=== PATIENT | male | born 1955 | race Caucasian/White ===

== ENCOUNTER 2019-11-18 02:37 | Emergency (ER) | payer BC, SELFPAY ==
--- NOTE | ~2019-11-18 | CT_ITS ---
EXAMINATION: CT abdomen pelvis wo con DATE: 11/18/2019 03:14 INDICATION: Lower abdominal pain, inguinal pain for 10 years, worse today. TECHNIQUE: Computed tomography (CT) of the abdomen and pelvis was performed without intravenous contr ast. Automated exposure control and iterative reconstruction technique were employed. Exam dose: 112 3.60 mGy-cm total exam DLP. COMPARISON: None. FINDINGS: The lung bases are clear. No pericardial or pleural effusion. 2.5 cm left hepatic lobe cyst. Scattered smaller probable cysts throughout the liver.. The gallbladder is present. No bile duct dilatation. No gallbladder wall thickening. No pancreatic ma ss lesion, calcification or ductal dilatation. Normal splenic size. Normal morphology of the adrenal glands. No renal mass lesion. No urinary tract calculus or hydroureteronephrosis. Normal caliber of the abdominal aorta. No intraperitoneal or retroperitoneal or pelvic mass lesion or adenopathy or ascites. Moderate prominence of the prostate gland. Urinary bladder is unremarkable. There are multiple diverticula of the left colon, particularly the sigmoid colon; no CT evidence of d iverticulitis. No bowel obstruction or intraperitoneal free air. Normal appendix. There is a small fat-containing left inguinal hernia. The tract of an intramedullary precious is noted in the proximal left femur. The hardware is no longer pre sent. Degenerative changes of the lower thoracic and lumbar spine. IMPRESSION: Hepatic cysts Diverticulosis of the colon; no CT evidence of diverticulitis Small fat-containing left inguinal hernia Reviewed, dictated and finalized at [facility]. Reviewed, dictated and finalized at [facility]. 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
[2019-11-18 02:45] VITALS: BP 162/94; PULSE 80; RESP 18; TEMP 36.5; O2SAT 100
--- NOTE | 2019-11-18 02:54 | ED.ABDPAIN ---
HPI - Abdominal Pain General Chief Complaint: Abdominal Pain Stated Complaint: LEFT SIDE PAIN Time Seen by Provider: 11/18/19 02:52 Source: patient and RN notes reviewed Mode of arrival: ambulatory Limitations: no limitations History of Present Illness HPI narrative: Pt is a 64 y/o male who presents to the ED with c/o lt groin pain starting roughly 10 years ago and worsening this morning. He notes that his pain feels similar to a pulled muscle. Pt states he's been doing alot of lifting and pulling and also helped his son with some work that could have aggravated his left groin. Pt states he's not having any pain now since he's not moving or walking. Pt states that his pain worsened into an excruciating pain after he went to use the restroom this morning. He notes that his pain is aggravated with certain movements. Pt states that he took 2 Tylenol for his pain this morning. He denies any nausea, vomiting, fever, dysuria, or hematuria. MD elicited complaint: abdominal pain Onset (ago): year(s) (10) Location: groin (lt groin) Radiation: none Exacerbating factors: movement Associated symptoms: denies other symptoms Treatments prior to arrival: other (Tylenol) Related Data Allergies Allergy/AdvReac Type Severity Reaction Status Date / Time Penicillins Allergy Hives Verified 11/18/19 02:40 Review of Systems Review of Systems: All systems reviewed & are unremarkable except as noted in HPI and below Constitutional: Constitutional: Denies fever(s) Gastrointestinal: Gastrointestinal: Reports abdominal pain (lt groin pain), Denies nausea and Denies vomiting Genitourinary: Genitourinary: Denies hematuria and Denies dysuria [facility] Past Medical History Medical History Anxiety Arthritis Hernia HTN (hypertension) Surgical History Surgical History S/P ORIF (open reduction internal fixation) fracture pinning in lt leg Social History Social History Smoking status: Never smoker Gender identity (if verbalized by the patient): Male Exam Const: General: cooperative, healthy appearing, comfortable, no acute distress, well developed, alert and awake; No confusion Orientation/consciousness: oriented to person, oriented to place, oriented to time, patient oriented x3 and No confusion Limitations: no limitations HENMT: Head: normal to inspection, normocephalic and atraumatic Neck: Neck: normal visual inspection Resp: Effort & Inspection: normal respiratory effort, able to speak in complete sentences, no respiratory distress and not tachypneic Auscultation: clear to auscultation bilaterally, no crackles, no rales, no rhonchi and no wheezes Cardio: Rate: regular rate Rhythm: regular rhythm GI: Inspection: normal to inspection GI Palp: No Tenderness to palpation present (GI) and No Hernia present (no inguinal hernia palpated) Auscultation: normal bowel sounds : General: Yes no CVA tenderness Skin: General skin exam: normal color, no rashes or lesions noted, elasticity normal and turgor normal Neuro: General: oriented to person, oriented to place, oriented to time, patient oriented x3, tone normal, moves all extremities, Normal light touch and pain sensation, no meningeal signs, no focal motor deficits, CN's II-XI intact bilaterally and No confusion Cranial nerves: Yes Equal, round and reactive pupils present Speech: No Abnormal speech present Sensory Exam: No Sensory deficit (Neuro) Extrem: General: normal to inspection, full ROM and capillary refill normal Psych: Appearance: grossly normal and well kempt Mental Status: mental status grossly normal Speech and movement: Normal speech and movement present Affect: normal affect Attitude: cooperative Thought process: Normal thought process present Thought content: Yes Normal thought content present Insight: Good insight present (Psy
--- NOTE | 2019-11-18 03:10 | PC.NURSE ---
patient to radiology.
[2019-11-18 03:24] LABS: Alanine Aminotransferase 28 U/L (4-50); Albumin Level 4.6 g/dL (3.5-5.1); Alkaline Phosphatase 109 U/L (38-126); Aspartate Amino Transferase 30 U/L (17-59); Bilirubin,Total 0.3 mg/dL (0.2-1.3); Blood Urea Nitrogen 26 mg/dL (9-20); Calcium 9.5 mg/dL (8.4-10.2); Carbon Dioxide 24 mmol/L (22-30); Chloride 107 mmol/L (98-107); Estimated CRCL calculation 70 ml/min; Estimated Glomerular Filt Rate > 60; Glucose 91 mg/dL (75-110); Lipase 51 U/L (23-300); Potassium 4.2 mmol/L (3.4-5.0); Sodium 142 mmol/L (137-145)
[2019-11-18 03:26] LABS: Basophils Absolute Auto 0.1 K/mm3 (0.0-0.1); Eosinophils Absolute Auto 0.1 K/mm3 (0-0.3); Hematocrit 44.1 % (42.0-52.0); Hemoglobin 14.5 g/dL (14.0-18.0); Immature Granulocyte Absolute 0.02 K/mm3 (0.00-0.031); Immature Granulocyte Percent A 0.3 % (0-0.5); Lymphocytes Absolute Auto 1.52 K/mm3 (0.9-3.2); Lymphocytes Percent Auto 21.5 % (18.3-44.2); Mean Corpuscular HGB Conc 32.9 g/dl (32-36); Mean Corpuscular Hemoglobin 29.7 pg (26-34); Mean Corpuscular Volume 90.4 fl (80-100); Mean Platelet Volume 9.4 fl (7.4-10.4); Monocytes Absolute Auto 0.8 K/mm3 (0.1-0.6); Monocytes Percent Auto 10.8 % (2.6-8.5); Neutrophils Absolute Auto 4.6 K/mm3 (1.3-6.7); Neutrophils Percent Auto 64.4 % (45.5-73.1); Platelet Count Result 209 k/mm3 (150-375); Red Blood Count 4.88 M/mm3 (4.6-6.20); Red Cell Distribution Width 12.7 % (11.5-14.5); White Blood Count 7.1 K/mm3 (4.5-10.0)
[2019-11-18] MEDS: KETOROLAC 30 MG/ML VIAL (*BKC) IV PUSH (04:14)
[2019-11-18 04:29] LABS: Add Urine Microscopic? NO; Appearance Urine Clear (Clear); Bilirubin Urine Negative (Negative); Blood Urine Negative (Negative); Color Urine Straw (Yellow); Glucose Urine UA Negative (Negative); Ketones Urine Negative (Negative); Leukocyte Esterase Ur Negative LEU/UL (Negative); Nitrate Urine Negative (Negative); Protein Urine Negative (Negative); Specific Grav Ur 1.019 (1.001-1.035); Urobilinogen Urine Negative mg/dL (<2.0)
[2019-11-18 04:44] VITALS: TEMP 36.5
[2019-11-18 04:46] VITALS: TEMP 36.5
[2019-11-18 04:50] VITALS: BP 145/89; PULSE 78; RESP 18; O2SAT 97
== END 2019-11-18 04:50 | disposition home or self-care (01) ==
PROVIDERS: Emergency Provider Emergency Medicine; PCP Family Medicine
DX: R10.32 Left lower quadrant pain (principal); M19.90 Unspecified osteoarthritis, unspecified site; I10 Essential (primary) hypertension; K76.89 Other specified diseases of liver; K57.90 Diverticulosis of intestine, part unspecified, without perforation or abscess without bleeding; K44.9 Diaphragmatic hernia without obstruction or gangrene
CPT/HCPCS: 36415; 74176; 80053; 81003; 83690; 85025; 96374; 96375; 99284; A9270; J1885; J3360

== ENCOUNTER 2020-01-20 00:12 | Day surgery (SDC) | payer BC, SELFPAY ==
[2020-01-18 13:04] VITALS: BMI 32.5
[2020-01-20] VITALS (9 sets, daily range): BP systolic 126–153; BP diastolic 77–98; PULSE 67–89; RESP 12–20; TEMP 36.1–36.4; O2SAT 98–100
--- NOTE | 2020-01-20 07:38 | ECG_ITS ---
Measurements Intervals [place] Rate: 77 P: 48 DC: 178 QRS: 19 QRSD: 110 T: 23 QT: 384 QTc: 436 Interpretive Statements SINUS RHYTHM NORMAL ECG Electronically Signed On 01-20-2020 7:57:32 CDT by Ivan Resendiz D.O.
[2020-01-20] MEDS: LACTATED RINGERS 1,000 ML 30 ML IV CONT ×2 (08:00→10:51)
--- NOTE | 2020-01-20 08:34 | WPDANESEPPF ---
Anes - Initial Pre Proc Eval Procedure: Operation Date: 01/20/20 09:30 Proposed Procedures p Laparoscopic Left Inguinal Hernia Repair With Mesh, Davinci Assisted - Manny Mccallum DO Date/Time: 01/20/20 08:34 Surgeon: Manny Mccallum DO Pre Op Diagnosis: Left Inguinal Hernia Patient Data Age: 64 Gender: M Height: 5 ft 9 in Weight: 99.79 kg Allergies Allergy/AdvReac Type Severity Reaction Status Date / Time Penicillins Allergy Hives Verified 01/20/20 08:11 Home Medications Medication Instructions Recorded Confirmed Type atorvastatin 40 mg tablet 40 mg PO DAILY 11/24/19 01/20/20 History losartan 100 mg tablet 100 mg PO DAILY 11/24/19 01/20/20 History amlodipine 5 mg PO DAILY 01/18/20 01/20/20 History Patient hx anesthesia problems: none Family hx anesthesia problems: none [facility], [facility] Social History Social History Smoking status: Never smoker Alcohol intake: current Gender identity (if verbalized by the patient): Male Anes - Eval Final PreProcedure Day of Procedure 01/20/20 08:34 Patient weight: overweight Heart: regular rate and rhythm Lungs: clear to auscultation Airway: Mallampati scale class III Neurological: alert and oriented Last oral intake: >/= 8 hours ASA classification: III Emergent: no Anesthetic plan: proceed Anesthesia type and monitoring: general ETT and standard monitoring Informed Consent: The patient's anesthetic plan and its attendant risks and benefits were discussed with the patient/family/POA. Questions were solicited and answers provided to the satisfaction of the patient/family/POA.
--- NOTE | 2020-01-20 08:53 | PM.IMHP ---
H&P: HPI History of Present Illness Chief complaint: Left Inguinal Hernia Narrative: Raul Lopez is a 64 year old male who presents for left inguinal hernia repair. He was noted to have a reducible left inguianl hernia that was minimally symptomatic. Over the past several weeks, he has had worsening pain and is requesting repair more urgently. Review of Systems Review of Systems: All systems reviewed & are unremarkable except as noted in HPI and below PMFSH Past Medical History Medical History Anxiety Arthritis HTN (hypertension) Hyperlipidemia Surgical History Surgical History History of hernia surgery right side with mesh 1999 S/P ORIF (open reduction internal fixation) fracture pinning in lt leg 1973 or 1974 Family History Family History Father Leukemia Mother Lung cancer Social History Social History Smoking status: Never smoker Alcohol intake: current Gender identity (if verbalized by the patient): Male Meds Home Medications and Allergies Home Medications Medication Instructions Recorded Confirmed Type atorvastatin 40 mg tablet 40 mg PO DAILY 11/24/19 01/20/20 History losartan 100 mg tablet 100 mg PO DAILY 11/24/19 01/20/20 History amlodipine 5 mg PO DAILY 01/18/20 01/20/20 History Allergies Allergy/AdvReac Type Severity Reaction Status Date / Time Penicillins Allergy Hives Verified 01/20/20 08:11 Exam : Scrotum: inguinal hernia on the left Assessment and Plan Assessment and plan (1) Left inguinal hernia: Code(s): K40.90 - Unilateral inguinal hernia, without obstruction or gangrene, not specified as recurrent Status: Acute Assessment and Plan: I have recommended laparoscopic left inguinal hernia repair with mesh, da Helen assisted. I have discussed the procedure, risks, benefits, and alternatives with the patient. All questions answered. No changes since last seen in office.
[2020-01-20] MEDS: ceFAZolin 2 GM/D5W 50 ML 2 GM/50 ML BAG IVPB (09:31)
[2020-01-20] MEDS: IBUPROFEN IV 800 MG/200 ML 800 MG/200 ML BAG 400 MG IVPB (09:31)
[2020-01-20] MEDS: BUPIVACAINE/EPINEPHRINE 0.5% 30 ML VIAL INFILTRATE (10:07)
--- NOTE | 2020-01-20 10:41 | PM.PROC ---
Procedure Note - Detailed Date of procedure: 01/20/20 Pre-op diagnosis: Left Inguinal Hernia Post-op diagnosis: same (Small indirect left inguinal hernia) Procedure performed: Laparoscopic left inguinal hernia repair with Progrip mesh, da Helen assisted Description of procedure: Procedure as well as risks, benefits, and alternatives were discussed with the patient. Written consent was obtained and placed in chart prior to procedure. Patient was brought back to surgical suite. He was placed supine on operating table. Time-out was done to confirm patient and procedure. He was then intubated by Anesthesia Department. His abdomen was prepped and draped in sterile fashion using chlorhexidine prep. 0.5% bupivacaine with epinephrine was infiltrated at each location for incision. An 8 mm incision was made in the left lateral abdomen, and a 5 mm Optiview trocar was advanced through the abdominal layers under direct visualization. Once inside the abdominal cavity, carbon dioxide insufflation was used to create a pneumoperitoneum. A camera was inserted and the abdominal cavity was inspected. The patient was placed in slight Trendelenburg position. An 8 millimeter incision was made on the right lateral abdomen and an 8 millimeter trocar was inserted under direct visualization. Another 8 millimeter incision was made just superior to the umbilicus and an 8 millimeter trocar was inserted under direct visualization. The 5 mm port was then removed and this was replaced with another 8 mm robotic port. The robotic arms were brought up to the patient's bedside and secured to the ports. The camera and instruments were inserted. I then moved over to the robotic console and took control of the camera and instruments. After careful inspection of the abdominal cavity, I began scoring the peritoneum along the left lower quadrant using scissors with electrocautery. The preperitoneal plane was entered and this was carefully dissected caudally along the inferior epigastric vessels. Careful dissection with scissors with electrocautery and blunt dissection was used to continue this dissection. I dissected far enough laterally to allow for mesh placement, and also dissected medially to identify the pubic arch and Marky's ligament. The hernia sac was identified and carefully dissected posteriorly. The cord contents were also identified and the peritoneum was carefully dissected far enough posteriorly to allow for mesh placement. Once an adequate pocket was created, I then placed the mesh within the preperitoneal pocket and carefully unfolded it. The mesh was centered on the hernia defect with adequate overlap circumferentially. The inferior edge of the mesh was inspected to ensure that it was far enough away from the peritoneal edge. The mesh appeared in proper position overlying the entire myopectineal orifice. The peritoneum was then closed over the mesh using a 3-0 V-lock running absorbable suture. The robotic instruments were removed. The robotic arms were disengaged from the ports and moved away from the bedside. The patient was flattened out in bed, the ports were removed under direct visualization, and the pneumoperitoneum was released. The skin of the incisions was approximated using 4-0 Monocryl subcuticular suture, and Exofin glue was applied on top. The patient was awakened from anesthesia, extubated, and transferred to recovery. Implants: Progrip Mesh 10cm x 15cm Anesthesia: GETA and local (0.5% bupivicaine with epi) Surgeon: Manny Mccallum DO Estimated blood loss (mL): 5 Drains: No Packing: No Pathology: none sent Complications: No immediate complications Condition: stable Disposition: same day Findings: This is a 64-year-old man who presented with a symptomatic left inguinal hernia. He was complaining of some discomfort in his left groin region, and a CT back in October showed evidence of a small fat containing left inguinal hernia. He was minimally
== END 2020-01-20 13:02 | disposition home or self-care (01) ==
PROVIDERS: PCP Family Medicine; Visit Provider Surgery
PROC: 8E0Y4CZ Robotic Assisted Procedure of Lower Extremity, Percutaneous Endoscopic Approach (ICD-10-PCS; CPT 49650; principal; 2020-01-20 09:30)
DX: K40.90 Unilateral inguinal hernia, without obstruction or gangrene, not specified as recurrent (principal); I10 Essential (primary) hypertension; E78.5 Hyperlipidemia, unspecified; M19.90 Unspecified osteoarthritis, unspecified site; F41.9 Anxiety disorder, unspecified
CPT/HCPCS: 49650; S2900; 36415; 86850; 86900; 86901; 93005; A9270; C1781; J0690; J1100; J1741; J2250; J2405; J2704; J2710; J3010; J7120

== ENCOUNTER 2020-05-29 19:00 | Emergency (ER) | payer MEDICARE, BC, SELFPAY ==
--- NOTE | ~2020-05-29 | XR_ITS ---
EXAMINATION: XR chest 1V portable INDICATION: Fever, history of lymphoma TECHNIQUE: Portable AP chest at 2112 hours COMPARISON: None available FINDINGS: The lungs are free of acute opacities. There is no pleural effusion or pneumothorax. A righ t internal jugular Port-A-Cath ends with its tip in the distal superior vena cava. The cardiomediasti nal silhouette is normal. IMPRESSION: 1. No acute cardiopulmonary abnormality. Reviewed, dictated and finalized at [facility].
[2020-05-29 19:08] VITALS: BP 128/91; PULSE 132; RESP 38; TEMP 37.8; O2SAT 100
[2020-05-29 19:15] VITALS: RESP 25
[2020-05-29 20:07] VITALS: BP 114/91; PULSE 137; RESP 30; O2SAT 100
[2020-05-29 20:13] LABS: Hematocrit 23.4 % (42.0-52.0); Immature Platelet Fraction Pct 3.5 % (0.9-11.2); Lymphocytes Absolute Auto 0.12 K/mm3 (0.9-3.2); Lymphocytes Percent Auto 70.6 % (18.3-44.2); Mean Corpuscular HGB Conc 34.2 g/dl (32-36); Mean Corpuscular Hemoglobin 29.4 pg (26-34); Mean Platelet Volume 11.9 fl (7.4-10.4); Monocytes Percent Auto 17.6 % (2.6-8.5); Neutrophils Percent Auto 11.8 % (45.5-73.1); Nucleated Red Blood Cells Perc 17.6 % (0.0-0.2); Platelet Count Result 57 k/mm3 (150-375); Red Blood Count 2.72 M/mm3 (4.6-6.20); Red Cell Distribution Width 14.8 % (11.5-14.5)
[2020-05-29 20:20] LABS: White Blood Count 0.2 K/mm3 (4.5-10.0)
[2020-05-29 20:21] LABS: Hypochromasia 1+ (NORMAL); Platelet Estimate Decreased (Adequate)
[2020-05-29 20:22] LABS: Lactic Acid Reflex 2.9 mmol/L (0.7-2.1)
[2020-05-29 20:23] LABS: Alanine Aminotransferase 21 U/L (4-50); Albumin Level 3.2 g/dL (3.5-5.1); Alkaline Phosphatase 69 U/L (38-126); Anion Gap 9 mmol/L (8-16); Aspartate Amino Transferase 16 U/L (17-59); Bilirubin,Total 0.5 mg/dL (0.2-1.3); Blood Urea Nitrogen 19 mg/dL (9-20); Calcium 8.6 mg/dL (8.4-10.2); Carbon Dioxide 22 mmol/L (22-30); Chloride 100 mmol/L (98-107); Estimated CRCL calculation 68 ml/min; Estimated Glomerular Filt Rate > 60; Glucose 125 mg/dL (75-110); Potassium 4.1 mmol/L (3.4-5.0); Sodium 131 mmol/L (137-145)
[2020-05-29] MEDS: SODIUM CHLORIDE 0.9% IV 1,000 ML 150 ML IV CONT (20:25)
--- NOTE | 2020-05-29 20:57 | PC.NURSE ---
2054 Patient fluids increased to 999ml/hr at this time per Dr. Modi verbal requests.
[2020-05-29 21:00] VITALS: BP 120/88; PULSE 123; RESP 24; O2SAT 100
--- NOTE | 2020-05-29 21:29 | ED.FEVER ---
HPI - Fever General Chief Complaint: Fever <Krish Rainey MD - Last Filed: 05/29/20 21:43> Stated Complaint: LOW WBC CHEMO PT <Krish Rainey MD - Last Filed: 05/29/20 21:43> Time Seen by Provider: 05/29/20 19:07 <Krish Rainey MD - Last Filed: 05/29/20 21:43> Source: patient and family <Krish Rainey MD - Last Filed: 05/29/20 21:43> Mode of arrival: ambulatory <Krish Rainey MD - Last Filed: 05/29/20 21:43> Limitations: no limitations <Krish Rainey MD - Last Filed: 05/29/20 21:43> History of Present Illness HPI Narrative: 65-year-old with a history of hypertension, B-cell lymphoma presently going through chemotherapy here with complaints of having low-grade fever since this afternoon. Patient states that on the fifth day after chemo his white cell count drops to bare minimum and usually on the 6-day he starts feeling better however this time he had a fever of 100. Patient states that he called [facility] who recommended him to go to the ER however patient chose to come to our ER as we do not have a time. He denies any nausea or vomiting. No history of cough or shortness of breath. He denies any abdominal pain. No history of any urinary symptoms. <Krish Rainey MD - Last Filed: 05/29/20 21:43> MD elicited complaint: fever <Krish Rainey MD - Last Filed: 05/29/20 21:43> Pertinent past history: immunosuppression <Krish Rainey MD - Last Filed: 05/29/20 21:43> Onset (ago): hour(s) (6) <MD Damari Trinh Last Filed: 05/29/20 21:43> Measured temperature: 212 F <Krish Rainey MD - Last Filed: 05/29/20 21:43> Context: on chemotherapy <MD Damari Trinh Last Filed: 05/29/20 21:43> Exacerbating factors: nothing <MD Damari Trinh Last Filed: 05/29/20 21:43> Relieving factors: nothing <Krish Rainey MD - Last Filed: 05/29/20 21:43> Associated symptoms: denies other symptoms <Krish Rainey MD - Last Filed: 05/29/20 21:43> Treatments prior to arrival fever: none <Krish Rainey MD - Last Filed: 05/29/20 21:43> Related Data Home Medications: Home Medications Medication Instructions Recorded Confirmed atorvastatin 40 mg tablet 40 mg PO DAILY 11/24/19 02/11/20 losartan 100 mg tablet 100 mg PO DAILY 11/24/19 02/11/20 amlodipine 5 mg PO DAILY 01/18/20 02/11/20 <Krish Rainey MD - Last Filed: 05/29/20 21:43> Allergies/Adverse Reactions: Allergies Allergy/AdvReac Type Severity Reaction Status Date / Time Penicillins Allergy Hives Verified 02/08/20 09:13 <Krish Rainey MD - Last Filed: 05/29/20 21:43> Review of Systems Review of Systems: All systems reviewed & are unremarkable except as noted in HPI and below <Krish Rainey MD - Last Filed: 05/29/20 21:43> Constitutional: Constitutional: Reports as per HPI <Krish Rainey MD - Last Filed: 05/29/20 21:43> Eyes: Eyes: Reports as per HPI <Krish Rainey MD - Last Filed: 05/29/20 21:43> ENT: Reports as per HPI <Krish Rainey MD - Last Filed: 05/29/20 21:43> Cardiovascular: Cardiovascular: Reports no additional cardiovascular complaints <Krish Rainey MD - Last Filed: 05/29/20 21:43> Respiratory: Respiratory: Reports no additional respiratory complaints <Krish Rainey MD - Last Filed: 05/29/20 21:43> Gastrointestinal: Gastrointestinal: Reports no additional gastrointestinal complaints <Krish Rainey MD - Last Filed: 05/29/20 21:43> Musculoskeletal: Musculoskeletal: Reports no additional musculoskeletal complaints <Krish Rainey MD - Last Filed: 05/29/20 21:43> Neurologic: Reports system reviewed and no additional complaints, except as documented <Krish Rainey MD - Last Filed: 05/29/20 21:43> [facility] Past Medical History Medical History: Medical History Anxiety Arthritis HTN (hypertension) Hyperlipidemia <Krihs Rainey MD - [place]
[2020-05-29 21:56] LABS: Add Urine Microscopic? NO; Appearance Urine Clear (Clear); Bilirubin Urine Negative (Negative); Blood Urine Negative (Negative); Color Urine Yellow (Yellow); Glucose Urine UA Negative (Negative); Ketones Urine Negative (Negative); Leukocyte Esterase Ur Negative LEU/UL (Negative); Nitrate Urine Negative (Negative); Protein Urine Negative (Negative); Specific Grav Ur 1.013 (1.001-1.035); Urobilinogen Urine Negative mg/dL (<2.0)
[2020-05-29 22:13] VITALS: BP 119/85; PULSE 123; RESP 25; O2SAT 100
--- NOTE | 2020-05-29 22:45 | PC.NURSE ---
Report to Miesha at the [facility], Room number 3444 [facility] given
--- NOTE | 2020-05-29 22:55 | PC.NURSE ---
Report to Leonie GILBERT at [facility]
[2020-05-29 23:07] VITALS: BP 118/88; PULSE 124; RESP 25; TEMP 37.3; O2SAT 100
[2020-05-29 23:09] LABS: Reflex Lactic Acid Yes or No Add Lactic
== END 2020-05-29 23:15 | disposition short-term general hospital (02) ==
PROVIDERS: Emergency Provider Family Medicine; PCP Family Medicine
DX: D70.9 Neutropenia, unspecified (principal); R50.81 Fever presenting with conditions classified elsewhere; I10 Essential (primary) hypertension; C85.10 Unspecified B-cell lymphoma, unspecified site; Z79.899 Other long term (current) drug therapy; E78.5 Hyperlipidemia, unspecified; M19.90 Unspecified osteoarthritis, unspecified site
CPT/HCPCS: 36415; 71045; 80053; 81003; 83605; 85025; 85055; 87040; 96361; 96365; 96367; 99285; J0692; J3370; J7030

== ENCOUNTER 2020-08-05 14:46 | Outpatient (CLI) | payer MEDICARE, BC, SELFPAY ==
--- NOTE | ~2020-08-05 | US_ITS ---
EXAMINATION: US venous doppler LE RT EXAM DATE: 08/05/2020 15:17 INDICATION: Right leg edema. TECHNIQUE: Multiple grayscale, color flow and Doppler images of the lower extremity deep venous syste ms bilaterally were obtained and reviewed. There is no prior study for comparison. FINDINGS: Right side: The right common femoral, femoral and profunda veins demonstrate normal color flow, respi ratory variation, augmentation and compressibility. Compressibility, color flow confirmed within the right popliteal, posterior tibial, peroneal, and greater saphenous veins. Left side: The left common femoral, femoral and profunda veins demonstrate normal color flow, respira tory variation, augmentation and compressibility. Compressibility, color flow confirmed within the l eft popliteal, posterior tibial, peroneal, and greater saphenous veins. IMPRESSION: 1. No lower extremity deep venous thrombosis bilaterally. Reviewed, dictated and finalized at [facility]. 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
== END 2020-08-05 14:47 | disposition home or self-care (01) ==
LOC: ANHIMG 14:53
PROVIDERS: PCP Family Medicine; Visit Provider Family Medicine
DX: R60.0 Localized edema (principal)
CPT/HCPCS: 93971

== ENCOUNTER 2020-08-30 10:12 | Outpatient (CLI) | payer MEDICARE, BC, SELFPAY ==
--- NOTE | ~2020-08-30 | XR_ITS ---
XR chest 2V 08/30/2020 10:26 Indication: Cough and shortness of breath. History of lymphoma. Procedure: PA and lateral views of the chest Comparison: 05/29/2020 Findings: Patchy bilateral airspace disease, compatible with pneumonia. No pleural effusion. Portacat heter tip in the SVC. No pneumothorax. Impression: 1: Patchy bilateral airspace disease, compatible with pneumonia. Reviewed, dictated and finalized at [facility]. 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
== END 2020-08-30 10:13 | disposition home or self-care (01) ==
PROVIDERS: PCP Family Medicine; Visit Provider Family Medicine
DX: R05 Cough (principal); R91.8 Other nonspecific abnormal finding of lung field
CPT/HCPCS: 71046

== ENCOUNTER 2020-09-02 11:33 | Inpatient (IN) | payer MEDICARE, BC, SELFPAY ==
[2020-09-02] VITALS (28 sets, daily range): BP systolic 106–151; BP diastolic 74–96; PULSE 84–120; RESP 16–32; TEMP 36.6; O2SAT 91–98; BMI 29.7
--- NOTE | ~2020-09-02 | XR_ITS ---
EXAMINATION: XR chest 1V portable DATE: 09/07/2020 06:13 INDICATION: COVID presenting with cough and shortness of breath TECHNIQUE: frontal view of the chest was obtained. COMPARISON: Chest radiograph and CT dated 09/02/2020 FINDINGS: Again seen are patchy bilateral airspace opacities throughout both lungs which appear unchanged in ex tent but with some increase in the density of the opacities in the left upper lung zone. No pleural e ffusion or pneumothorax. The cardiomediastinal silhouette is normal. IMPRESSION: 1. Diffuse scattered bilateral patchy airspace opacities consistent with pneumonia with some progress ion in the left upper lung zone. Reviewed, dictated and finalized at location A. ARCH AND DEVELOPMENT MANAGER IMPRESSION: 1. Diffuse scattered bilateral patchy airspace opacities consistent with pneumo kimi with some progression in the left upper lung zone.
--- NOTE | ~2020-09-02 | US_ITS ---
EXAMINATION: US venous doppler [facility] DATE: 09/10/2020 13:28 INDICATION: Shortness of breath TECHNIQUE: Grayscale ultrasound images without and with compression and Doppler ultrasound images of the bilateral lower extremity veins were obtained. COMPARISON: 08/05/2020 FINDINGS: The visualized portions of right common femoral vein, profunda (deep) femoral vein, femoral vein, pop liteal vein, posterior tibial veins, peroneal veins, gastrocnemius vein and greater saphenous vein ou tflow remain patent. The visualized portions of left common femoral vein, profunda femoral vein, femoral vein, popliteal v ein, posterior tibial veins, peroneal veins, gastrocnemius vein and greater saphenous vein outflow ar e patent. IMPRESSION: 1. No deep venous thrombosis in either lower limb. Reviewed, dictated and finalized at location A. SPLITTER
--- NOTE | ~2020-09-02 | XR_ITS ---
XR chest 1V portable 09/02/2020 12:57 Indication: Shortness of breath Procedure: AP portable chest Comparison: 08/30/2020 Findings: Progression of patchy bilateral airspace disease, compatible with pneumonia. Port catheter tip in the SVC. No pneumothorax or pleural effusion. No acute osseous abnormality. Impression: 1: Progression of patchy bilateral airspace disease, compatible with pneumonia. Reviewed, dictated and finalized at location B. EN EQUIPMENT AIDE Impression: 1: Progression of patchy bilateral airspace disease, compatible with pneumonia.
--- NOTE | ~2020-09-02 | CT_ITS ---
EXAMINATION:CT chest wo con DATE: 09/02/2020 12:59 INDICATION: Shortness of breath. Pneumonia. TECHNIQUE: Computed tomography (CT) of the chest was performed without intravenous contrast. Automate d exposure control and iterative reconstruction technique were employed. The dose-length product (DLP ) was 312.07 mGy-cm. COMPARISON: CT abdomen and pelvis 11/18/2019, chest single view 09/02/2020 FINDINGS: Motion artifact is noted. There are patchy groundglass opacities in all lobes, worst in the upper lobes. There are small pleural effusions. The heart size is normal. There is a right internal jugular port with tip at superior cavoatrial junction. There are cysts in the liver measuring up to 2 .8 cm. There is severe cervical and thoracic spondylosis. IMPRESSION: 1. Diffuse lung disease, likely atypical pneumonia such as COVID-19 pneumonia. 2. Small pleural effusions. Reviewed, dictated and finalized at location A. [employer]
--- NOTE | 2020-09-02 11:49 | ECG_ITS ---
Measurements Intervals [place] Rate: 122 P: 49 NE: 167 QRS: 56 QRSD: 98 T: 27 QT: 315 QTc: 450 Interpretive Statements SINUS TACHYCARDIA BORDERLINE T WAVE ABNORMALITY- INFERIOR LEADS ABNORMAL ECG Electronically Signed On 09-02-2020 12:04:54 GLASS CUT OFF TENDER by Ivna Resendiz D.O.
--- NOTE | 2020-09-02 11:59 | PC.NURSE ---
pt requesting labs to be drawn from port a cath
--- NOTE | 2020-09-02 12:33 | ED.GENADULT ---
HPI - General Adult General Chief complaint: Weakness Stated complaint: weakness/decreased energy/cough Time Seen by Provider: 09/02/20 12:26 Source: patient Mode of arrival: ambulatory Limitations: no limitations History of Present Illness HPI narrative: Patient is a 65-year-old male complaining of pneumonia , and generalized weakness that started 3 weeks ago but worse the past week. Patient states he is currently being treated with Zithromax but states he is not better went to his PCP and was told to go to the ER. Patient denies any chest pain, shortness of breath, abdominal pain, nausea, vomiting, diarrhea, fever or chills. Admits to coughing constantly, productive clear sputum. Related Data Home Medications Medication Instructions Recorded Confirmed atorvastatin 40 mg tablet 40 mg PO DAILY 11/24/19 02/11/20 losartan 100 mg tablet 100 mg PO DAILY 11/24/19 02/11/20 amlodipine 5 mg PO DAILY 01/18/20 02/11/20 Allergies Allergy/AdvReac Type Severity Reaction Status Date / Time Penicillins Allergy Hives Verified 02/08/20 09:13 Review of Systems Review of Systems: All systems reviewed & are unremarkable except as noted in HPI and below Constitutional: Constitutional: Denies body ache(s), Denies chills, Denies excessive sweating, Denies fatigue, Denies fever(s), Denies headache(s), Denies lethargy and Denies weight loss Eyes: Eyes: Denies blurry vision, Denies change in vision and Denies loss of vision ENT: Denies dizziness, Denies ear discharge, Denies headache(s), Denies lip swelling, Denies epistaxis, Denies nasal congestion, Denies neck pain, Denies throat swelling and Denies tongue swelling Cardiovascular: Cardiovascular: Denies chest pain, Denies chest pain at rest, Denies chest pain with activity, Denies diaphoresis, Denies rapid heart rate, Denies edema, Denies irregular heart rhythm, Denies lightheadedness, Denies palpitations, Denies dyspnea and Denies dyspnea on exertion Respiratory: Respiratory: Denies chest congestion, Denies cough, Denies hemoptysis, Denies dyspnea and Denies dyspnea on exertion Gastrointestinal: Gastrointestinal: Denies abdominal pain, Denies melena, Denies hematochezia, Denies diarrhea, Denies nausea, Denies vomiting and Denies hematemesis Musculoskeletal: Musculoskeletal: Denies abnormal gait, Denies deformity, Denies joint swelling, Denies limited range of motion, Denies neck pain and Denies numbness Neurologic: Denies Abnormal speech present, Denies abnormal gait, Denies confusion, Denies dizziness, Denies headache(s), Denies focal weakness, Denies loss of vision, Denies numbness, Denies Other visual disturbances and Denies Sensory deficit (Neuro) Psychiatric: Psychiatric: Denies confusion, Denies depression, Denies auditory hallucinations, Denies homicidal ideation and Denies suicidal ideation Endocrine: Endocrine: Denies cold intolerance, Denies excessive sweating, Denies fatigue, Denies heat intolerance and Denies palpitations Hematologic/Lymphatic: Hematologic/Lymphatic: Denies easy bleeding and Denies easy bruising Allergic/Immunologic: Allergic/Immunologic: Denies lip swelling, Denies throat swelling and Denies tongue swelling PMFSH Past Medical History Medical History (Updated 09/02/20 @ 15:23 by Gomez Morgan MD) Anxiety Arthritis HTN (hypertension) Hyperlipidemia Surgical History Surgical History History of hernia surgery right side with mesh 1999 S/P ORIF (open reduction internal fixation) fracture pinning in lt leg 1973 or 1974 Family History Family History Father Leukemia Mother Lung cancer Social History Social History Smoking status: Never smoker Alcohol intake: current Gender identity (if verbalized by the patient): Male Exam Const: General: cooperative, healthy appearing, comforta
[2020-09-02 12:59] LABS: Basophils Percent Auto 0.9 % (0.2-1.2); Eosinophils Percent Auto 0.9 % (0-4.4); Hematocrit 32.2 % (42.0-52.0); Hemoglobin 10.3 g/dL (14.0-18.0); Immature Granulocyte Absolute 0.09 K/mm3 (0.00-0.031); Immature Granulocyte Percent A 7.8 % (0-0.5); Immature Platelet Fraction Pct 5.8 % (0.9-11.2); Lymphocytes Absolute Auto 0.19 K/mm3 (0.9-3.2); Lymphocytes Percent Auto 16.5 % (18.3-44.2); Mean Corpuscular Hemoglobin 32.1 pg (26-34); Mean Corpuscular Volume 100.3 fl (80-100); Mean Platelet Volume 11.1 fl (7.4-10.4); Monocytes Absolute Auto 0.2 K/mm3 (0.1-0.6); Neutrophils Absolute Auto 0.7 K/mm3 (1.3-6.7); Neutrophils Percent Auto 60.9 % (45.5-73.1); Platelet Count Result 35 k/mm3 (150-375); Red Blood Count 3.21 M/mm3 (4.6-6.20); Red Cell Distribution Width 15.3 % (11.5-14.5)
[2020-09-02 13:09] LABS: Lactic Acid Reflex 1.4 mmol/L (0.7-2.1)
[2020-09-02 13:09] LABS: Alanine Aminotransferase 22 U/L (4-50); Albumin Level 3.6 g/dL (3.5-5.1); Alkaline Phosphatase 64 U/L (38-126); Anion Gap 7 mmol/L (8-16); Aspartate Amino Transferase 45 U/L (17-59); Bilirubin,Total 0.6 mg/dL (0.2-1.3); Blood Urea Nitrogen 26 mg/dL (9-20); Calcium 8.8 mg/dL (8.4-10.2); Carbon Dioxide 24 mmol/L (22-30); Chloride 107 mmol/L (98-107); Estimated CRCL calculation 42 ml/min; Estimated Glomerular Filt Rate 44; Glucose 111 mg/dL (75-110); Potassium 4.4 mmol/L (3.4-5.0); Sodium 138 mmol/L (137-145)
[2020-09-02 13:10] LABS: White Blood Count 1.2 K/mm3 (4.5-10.0)
[2020-09-02] MEDS: SODIUM CHLORIDE 0.9% IV 1,000 ML 999 ML IV CONT (13:11)
[2020-09-02 14:20] LABS: Add Urine Microscopic? YES; Appearance Urine Cloudy (Clear); Bacteria Urine Trace /hpf; Bilirubin Urine Negative (Negative); Blood Urine 2+ (Negative); Color Urine Yellow (Yellow); Glucose Urine UA Negative (Negative); Ketones Urine Negative (Negative); Leukocyte Esterase Ur Negative LEU/UL (Negative); Mucus Urine Few /lpf; Nitrate Urine Negative (Negative); Protein Urine 2+ mg/dL (Negative); RBC Urine 0-2 /hpf (0-2); Specific Grav Ur 1.023 (1.001-1.035); Squamous Epithelial Cell Urine Occasional /hpf (Few); Transitional Epi Cells Urine Rare /hpf (None Seen); Urobilinogen Urine Negative mg/dL (<2.0)
--- NOTE | 2020-09-02 17:24 | ADMGEN ---
This patient, Raul Lopez, was admitted to [facility] Surg Room 329-01. Patient/family oriented to hospital policies and general routines including ID bracelet, bed and alarms, visiting hours, pain management, procedures, bathroom and other care routines, personal items, smoking policy, room service/diet, and visiting hours. Information on how to activate the Rapid Response Team has been discussed. Patient/Family are encouraged to report perceived risks to care and to ask questions if they do not understand what they are told or what they should do.
[2020-09-02] MEDS: LACTATED RINGERS 1,000 ML 125 ML IV CONT (17:30)
--- NOTE | 2020-09-02 19:46 | PM.IMHP ---
H&P: HPI History of Present Illness Date/Time: 09/02/20 19:46 <Octavio Weber MD - Last Filed: 09/04/20 01:03> Chief complaint: pneumonia,sepsis <Octavio Weber MD - Last Filed: 09/04/20 01:03> Narrative: This is a pleasant 65-year-old male with known history of B-cell lymphoma who is followed by Oncology, Dr. Jerry at [facility] and who presented to the hospital with a complaint of generalized weakness, fatigue, intermittent fevers and chills, and poorly productive cough that has been ongoing for the past 3 weeks but seems to have worsened over the last week. Patient complains of worsening coughing with any talking. He called his PCP who prescribed him a Z-Todd over the phone on August 29. The patient's last dose of chemotherapy was in June and he was told that his cancer is now in remission. He believes that his symptoms started after he received a flu vaccine approximately 3 weeks ago. He denies any known sick contacts. He also denies any chest pain, wheezing, significant shortness of breath, abdominal pain, dysuria, hematuria, nausea, vomiting, diarrhea, or rectal bleeding. The patient was evaluated emergency room today and was swabbed for COVID-19. He was found to be septic with tachycardia, tachypnea, and leukopenia. He was treated with IV fluid therapy and routine labs demonstrated mild acute renal failure. He was also given his last dose of azithromycin IV today. The patient has not required any supplemental oxygen and has been admitted to the hospital for observation. On my encounter with the patient he has no complaints other than mild cough. He denies taking any medications at home at this time. <Octavio Weber MD - Last Filed: 09/04/20 01:03> Review of Systems Review of Systems: All systems reviewed & are unremarkable except as noted in HPI and below <Octavio Weber MD - Last Filed: 09/04/20 01:03> [facility] Past Medical History Medical History: Medical History Anxiety Arthritis B-cell lymphoma HTN (hypertension) Hyperlipidemia <Octavio Weber MD - Last Filed: 09/04/20 01:03> Surgical History Surgical History: Surgical History History of hernia surgery right side with mesh 2000 S/P ORIF (open reduction internal fixation) fracture pinning in lt leg 1973 or 1974 <Octavio Weber MD - Last Filed: 09/04/20 01:03> Family History Family History: Family History Father Leukemia Mother Lung cancer <Octavio Weber MD - Last Filed: 09/04/20 01:03> Social History Social History: Social History Smoking status: Never smoker Alcohol intake: former Substance use: never Gender identity (if verbalized by the patient): Male Spiritual care concerns: No <Octavio Weber MD - Last Filed: 09/04/20 01:03> Meds Home Medications and Allergies Home medications: Home Medications Medication Instructions Recorded Confirmed Type No Home Medications 09/02/20 09/02/20 History <Octavio Weber MD - Last Filed: 09/04/20 01:03> Allergies/Adverse reactions: Allergies Allergy/AdvReac Type Severity Reaction Status Date / Time Penicillins Allergy Hives Verified 09/02/20 17:29 <Octavio Weber MD - Last Filed: 09/04/20 01:03> Vital Signs Vital Signs - 24 hr 09/02/20 11:46 09/02/20 12:29 09/02/20 12:30 Temperature 36.6 C Pulse Rate 115 H 117 H Respiratory Rate 18 24 H Blood Pressure 110/74 Pulse Oximetry 94 95 09/02/20 12:31 09/02/20 12:40 09/02/20 12:45 Temperature Pulse Rate 114 H 119 H Respiratory Rate 22 H 22 H Blood Pressure 130/93 H Pulse Oximetry 92 98 09/02/20 12:46 09/02/20 13:28 09/02/20 13:30 Temperature Pulse Rate 117 H 115 H 114 H Respiratory Rate 25 H 24
[2020-09-03] VITALS (7 sets, daily range): BP systolic 143–160; BP diastolic 90–98; PULSE 75–96; RESP 16–20; TEMP 35.9–36.9; O2SAT 91–100
[2020-09-03 00:19] LABS: SARS-CoV-2 RNA PCR Positive
[2020-09-03] MEDS: LACTATED RINGERS 1,000 ML 125 ML IV CONT ×3 (04:18→20:17)
[2020-09-03 06:33] LABS: Hematocrit 27.4 % (42.0-52.0); Hemoglobin 8.8 g/dL (14.0-18.0); Immature Platelet Fraction Pct 6.1 % (0.9-11.2); Lymphocytes Absolute Auto 0.13 K/mm3 (0.9-3.2); Mean Corpuscular HGB Conc 32.1 g/dl (32-36); Mean Corpuscular Volume 99.6 fl (80-100); Mean Platelet Volume 12.8 fl (7.4-10.4); Monocytes Absolute Auto 0.1 K/mm3 (0.1-0.6); Monocytes Percent Auto 12.3 % (2.6-8.5); Neutrophils Absolute Auto 0.4 K/mm3 (1.3-6.7); Neutrophils Percent Auto 67.7 % (45.5-73.1); Red Blood Count 2.75 M/mm3 (4.6-6.20)
[2020-09-03 06:44] LABS: Anion Gap 5 mmol/L (8-16); Blood Urea Nitrogen 25 mg/dL (9-20); Calcium 8.7 mg/dL (8.4-10.2); Carbon Dioxide 25 mmol/L (22-30); Chloride 109 mmol/L (98-107); Estimated CRCL calculation 59 ml/min; Estimated Glomerular Filt Rate > 60; Glucose 149 mg/dL (75-110); Magnesium 2.5 mg/dL (1.6-2.3); Potassium 4.9 mmol/L (3.4-5.0); Sodium 139 mmol/L (137-145)
[2020-09-03 07:42] LABS: Platelet Count Result 24 k/mm3 (150-375); White Blood Count 0.7 K/mm3 (4.5-10.0)
--- NOTE | 2020-09-03 11:36 | PM.IMPN ---
Progress Note: A&P Assessment and Plan (1) Suspected COVID-19 virus infection: Code(s): Z20.828 - Contact with and (suspected) exposure to other viral communicable diseases Status: Acute Assessment and Plan: Patient has been placed in observation status. Continue supportive care. COVID-19 results are pending. The patient is not requiring any supplemental oxygen at this time does not meet criteria for any further dexamethasone treatment. Continue light IV hydration overnight. Antitussive agents as needed. Antipyretics as needed. (2) Pneumonia: Qualifiers: Laterality: unspecified laterality Lung location: unspecified part of lung Pneumonia type: due to unspecified organism Qualified Code(s): J18.9 - Pneumonia, unspecified organism Code(s): J18.9 - Pneumonia, unspecified organism Status: Acute Assessment and Plan: Likely secondary to COVID pneumonia. Will check a sputum culture. Blood cultures. The patient has received 5 doses of azithromycin. He is not requiring any supplemental oxygen at this time. We will check influenza. Also check for pneumococcal Legionella and mycoplasma. (3) Sepsis: Qualifiers: Sepsis acute organ dysfunction status: unspecified Sepsis type: sepsis due to unspecified organism Qualified Code(s): A41.9 - Sepsis, unspecified organism Code(s): A41.9 - Sepsis, unspecified organism Status: Acute Assessment and Plan: Source of sepsis appears to be pulmonary and is likely secondary to COVID pneumonia. Monitor vital signs and urine output. Blood cultures are pending. Check lactic acid. (4) Acute renal failure: Qualifiers: Acute renal failure type: unspecified Qualified Code(s): N17.9 - Acute kidney failure, unspecified Code(s): N17.9 - Acute kidney failure, unspecified Status: Acute Assessment and Plan: Likely secondary to acute dehydration. continue IV fluid challenge overnight. Monitor renal function and urine output. Avoid nephrotoxin agents. Renally dose medications. (5) Pancytopenia: Code(s): D61.818 - Other pancytopenia Status: Acute Assessment and Plan: Likely secondary to chemotherapy. Monitor blood counts. Transfuse p.r.n.. (6) B-cell lymphoma: Qualifiers: B-cell lymphoma type: unspecified B-cell Lymphoma site: unspecified region Qualified Code(s): C85.10 - Unspecified B-cell lymphoma, unspecified site Code(s): C85.10 - Unspecified B-cell lymphoma, unspecified site Status: Chronic Assessment and Plan: Continue oncology recommendations. Subjective Date/time seen: 09/03/20 11:36 Interval history: Patient was seen during the morning rounds, feeling better, decreased sob,no chest pain, mood stable. Review of Systems Review of Systems: All systems reviewed & are unremarkable except as noted in HPI and below Exam Const: General: cooperative, no acute distress, alert and awake Nutritional Appearance: well nourished Orientation/consciousness: patient oriented x3 HENMT: Head: normal to inspection General nose exam: Normal external nose present Face and sinus: normal facial exam Mouth: Yes Normal oral and palatal mucosa present and Yes oropharynx normal Eyes: Pupils: Equal, round and reactive pupils present EOM: EOMs intact bilaterally Neck: Neck: supple and no JVD Thyroid: thyroid normal Lymphatic: lymphadenopathy not noted Resp: Effort & Inspection: normal respiratory effort Auscultation: clear to auscultation bilaterally Cardio: Rate: tachycardic Rhythm: regular rhythm Heart sounds: no murmurs GI: Inspection: normal to inspection Auscultation: normal bowel sounds Skin: General skin exam: normal color and no rashes or lesions noted Neuro: General: patient oriented x3 Cranial nerves: Yes CN's II-XII intact bilaterally and Yes Equal, round and reactive pupils present Speech: normal speech Motor ex
--- NOTE | 2020-09-03 19:03 | PM.PNPUL ---
Progress Note: A&P Assessment and Plan (1) B-cell lymphoma: Qualifiers: B-cell lymphoma type: unspecified B-cell Lymphoma site: unspecified region Qualified Code(s): C85.10 - Unspecified B-cell lymphoma, unspecified site Code(s): C85.10 - Unspecified B-cell lymphoma, unspecified site Status: Chronic (2) Pancytopenia: Code(s): D61.818 - Other pancytopenia Status: Acute Assessment and Plan: likely due to chemotherapy. last session was in June. Consider consulting Hematolgy to see if he's a candidate for CSF or Erythropoietin (3) Pneumonia due to COVID-19 virus: Code(s): U07.1 - COVID-19; J12.89 - Other viral pneumonia Status: Acute Assessment and Plan: Clinical improving and more than three weeks out since onset of symptoms. Not hypoxic - not a cadidate for Remdesivir or Dexamethsone at this stage - Can likely go home in 24-48 hours if tolerating oral intake Subjective Date/time seen: 09/03/20 19:03 Interval history: 65 y/o with Lymphoma s/p six cycles of chemotherapy admitted with weakness, loss taste and smell, non productive cough but no dyspnea for the past three weeks and has COVID-19. His last chemotherapy regimen was in June of this year. He feels like he's getting better, his appetite is improving and his smell is coming back but he still has an unrelenting cough. CBC shows pancytopenia Review of Systems Review of Systems: All systems reviewed & are unremarkable except as noted in HPI and below Exam Const: General: cooperative, no acute distress, alert and awake Nutritional Appearance: well nourished Orientation/consciousness: patient oriented x3 HENMT: Head: normal to inspection General nose exam: Normal external nose present Face and sinus: normal facial exam Mouth: Yes Normal oral and palatal mucosa present and Yes oropharynx normal Eyes: Pupils: Equal, round and reactive pupils present EOM: EOMs intact bilaterally Neck: Neck: supple and no JVD Thyroid: thyroid normal Lymphatic: lymphadenopathy not noted Resp: Effort & Inspection: normal respiratory effort Auscultation: clear to auscultation bilaterally Cardio: Rate: tachycardic Rhythm: regular rhythm Heart sounds: no murmurs GI: Inspection: normal to inspection Auscultation: normal bowel sounds Skin: General skin exam: normal color and no rashes or lesions noted Neuro: General: patient oriented x3 Cranial nerves: Yes CN's II-XII intact bilaterally and Yes Equal, round and reactive pupils present Speech: normal speech Motor exam (neuro): 5/5 motor strength present throughout Sensory Exam: normal sensation Extrem: General: normal to inspection and no edema Psych: Mental Status: mental status grossly normal Affect: normal affect Objective Data Vital Signs Vital Signs: Vital Signs - 24 hr 09/02/20 20:00 09/03/20 00:00 09/03/20 04:00 Temperature 36.6 C 35.9 C L 36.4 C Pulse Rate 84 84 80 Respiratory Rate 18 18 16 Blood Pressure 128/85 148/96 H 160/98 H Pulse Oximetry 96 99 100 09/03/20 05:31 09/03/20 08:00 09/03/20 12:00 Temperature 36.6 C 36.8 C Pulse Rate 75 77 86 Respiratory Rate 20 20 Blood Pressure 147/95 H 150/93 H 160/90 H Pulse Oximetry 91 95 09/03/20 16:00 Temperature 36.7 C Pulse Rate 86 Respiratory Rate 20 Blood Pressure 143/94 H Pulse Oximetry 96 Intake/Output Intake/Output: Intake & Output 08/31/20 09/01/20 09/02/20 09/03/20 23:59 23:59 23:59 23:59 Intake Total 1300 3020 Balance 1300 3020 Meds/Results Medications: Active Medications Generic Name Dose Route Start Last Admin Trade Name Freq PRN Reason Stop Dose Admin Acetaminophen 650 mg 09/02/20 19:56 Acetaminophen 325 Mg Tablet PO Q4H PRN Mild Pain (1-3) or Fever Guaifenesin/Dextromethorphan 5 ml 09/03/20 04:52 Guaifenesin/Dextromethorphan 10 Ml Udc PO Q4H PRN Cough Hydralazine HCl 10 mg 09/03/20 04:52 Hydralazine Hcl 2
[2020-09-03] MEDS: guaiFENesin/DEXTROMETHORPHAN 10 ML UDC 5 ML PO (20:17)
[2020-09-04] VITALS: BP 146/94; PULSE 61; RESP 18; TEMP 36.8; O2SAT 95
[2020-09-04 04:00] VITALS: BP 159/101; PULSE 81; RESP 16; TEMP 36.9; O2SAT 98
[2020-09-04] MEDS: LACTATED RINGERS 1,000 ML 125 ML IV CONT ×2 (06:30→18:12)
[2020-09-04 08:00] VITALS: BP 149/97; PULSE 81; PULSE 90; RESP 16; RESP 20; TEMP 37.1; O2SAT 93; O2SAT 98
[2020-09-04] MEDS: guaiFENesin/DEXTROMETHORPHAN 10 ML UDC 5 ML PO (09:15)
--- NOTE | 2020-09-04 09:46 | PM.IMPN ---
Progress Note: A&P Assessment and Plan (1) Suspected COVID-19 virus infection: Code(s): Z20.828 - Contact with and (suspected) exposure to other viral communicable diseases Status: Acute Assessment and Plan: Patient has been placed in observation status. Continue supportive care. COVID-19 results are pending. The patient is not requiring any supplemental oxygen at this time does not meet criteria for any further dexamethasone treatment. Continue light IV hydration overnight. Antitussive agents as needed. Antipyretics as needed. (2) Pneumonia: Qualifiers: Laterality: unspecified laterality Lung location: unspecified part of lung Pneumonia type: due to unspecified organism Qualified Code(s): J18.9 - Pneumonia, unspecified organism Code(s): J18.9 - Pneumonia, unspecified organism Status: Acute Assessment and Plan: Likely secondary to COVID pneumonia. Will check a sputum culture. Blood cultures. The patient has received 5 doses of azithromycin. He is not requiring any supplemental oxygen at this time. We will check influenza. Also check for pneumococcal Legionella and mycoplasma. (3) Sepsis: Qualifiers: Sepsis acute organ dysfunction status: unspecified Sepsis type: sepsis due to unspecified organism Qualified Code(s): A41.9 - Sepsis, unspecified organism Code(s): A41.9 - Sepsis, unspecified organism Status: Acute Assessment and Plan: Source of sepsis appears to be pulmonary and is likely secondary to COVID pneumonia. Monitor vital signs and urine output. Blood cultures are pending. Check lactic acid. (4) Acute renal failure: Qualifiers: Acute renal failure type: unspecified Qualified Code(s): N17.9 - Acute kidney failure, unspecified Code(s): N17.9 - Acute kidney failure, unspecified Status: Acute Assessment and Plan: Likely secondary to acute dehydration. continue IV fluid challenge overnight. Monitor renal function and urine output. Avoid nephrotoxin agents. Renally dose medications. (5) Pancytopenia: Code(s): D61.818 - Other pancytopenia Status: Acute Assessment and Plan: Likely secondary to chemotherapy. Monitor blood counts. Transfuse p.r.n.. (6) B-cell lymphoma: Qualifiers: B-cell lymphoma type: unspecified B-cell Lymphoma site: unspecified region Qualified Code(s): C85.10 - Unspecified B-cell lymphoma, unspecified site Code(s): C85.10 - Unspecified B-cell lymphoma, unspecified site Status: Chronic Assessment and Plan: Continue oncology recommendations. Additional Plan Will continue current treatment and consult heme onc. No need for Covid treatment as per Pulmonary for now. Monitor oxygen Subjective Date/time seen: 09/04/20 09:46 Interval history: 65 y/o with Lymphoma s/p six cycles of chemotherapy admitted with weakness, loss taste and smell, non productive cough but no dyspnea for the past three weeks and has COVID-19. His last chemotherapy regimen was in June of this year. He feels like he's getting better, his appetite is improving and his smell is coming back but he still has an unrelenting cough. CBC shows pancytopenia Patient was seen during the morning rounds today. feeling better, no sob or chest pain, mood stable. Review of Systems Review of Systems: All systems reviewed & are unremarkable except as noted in HPI and below Exam Const: General: cooperative, no acute distress, alert and awake Nutritional Appearance: well nourished Orientation/consciousness: patient oriented x3 HENMT: Head: normal to inspection General nose exam: Normal external nose present Face and sinus: normal facial exam Mouth: Yes Normal oral and palatal mucosa present and Yes oropharynx normal Eyes: Pupils: Equal, round and reactive pupils present EOM: EOMs intact bilaterally Neck: Neck: supple and no JVD Thyroid: thyroid normal Lymph
--- NOTE | 2020-09-04 11:12 | PM.PNPUL ---
Progress Note: A&P Assessment and Plan (1) B-cell lymphoma: Qualifiers: B-cell lymphoma type: unspecified B-cell Lymphoma site: unspecified region Qualified Code(s): C85.10 - Unspecified B-cell lymphoma, unspecified site Code(s): C85.10 - Unspecified B-cell lymphoma, unspecified site Status: Chronic (2) Pancytopenia: Code(s): D61.818 - Other pancytopenia Status: Acute Assessment and Plan: likely due to chemotherapy. last session was in June. Consider consulting Hematolgy to see if he's a candidate for CSF or Erythropoietin (3) Pneumonia due to COVID-19 virus: Code(s): U07.1 - COVID-19; J12.89 - Other viral pneumonia Status: Acute Assessment and Plan: Clinical improving and more than three weeks out since onset of symptoms. Not hypoxic - not a cadidate for Remdesivir or Dexamethsone at this stage - cough suppressant ordered Subjective Date/time seen: 09/04/20 11:12 Interval history: He's feeling better overall. Still no appetite but taking oral liquids OK. Cough is slight better with cough suppressant Review of Systems Review of Systems: All systems reviewed & are unremarkable except as noted in HPI and below Exam Const: General: cooperative, no acute distress, alert and awake Nutritional Appearance: well nourished Orientation/consciousness: patient oriented x3 HENMT: Head: normal to inspection General nose exam: Normal external nose present Face and sinus: normal facial exam Mouth: Yes Normal oral and palatal mucosa present and Yes oropharynx normal Eyes: Pupils: Equal, round and reactive pupils present EOM: EOMs intact bilaterally Neck: Neck: supple and no JVD Thyroid: thyroid normal Lymphatic: lymphadenopathy not noted Resp: Effort & Inspection: normal respiratory effort Auscultation: clear to auscultation bilaterally Cardio: Rate: tachycardic Rhythm: regular rhythm Heart sounds: no murmurs GI: Inspection: normal to inspection Auscultation: normal bowel sounds Skin: General skin exam: normal color and no rashes or lesions noted Neuro: General: patient oriented x3 Cranial nerves: Yes CN's II-XII intact bilaterally and Yes Equal, round and reactive pupils present Speech: normal speech Motor exam (neuro): 5/5 motor strength present throughout Sensory Exam: normal sensation Extrem: General: normal to inspection and no edema Psych: Mental Status: mental status grossly normal Affect: normal affect Objective Data Vital Signs Vital Signs: Vital Signs - 24 hr 09/03/20 12:00 09/03/20 16:00 09/03/20 20:00 Temperature 36.8 C 36.7 C 36.9 C Pulse Rate 86 86 96 Respiratory Rate 20 20 16 Blood Pressure 160/90 H 143/94 H 160/94 H Pulse Oximetry 95 96 93 09/04/20 00:00 09/04/20 04:00 09/04/20 08:00 Temperature 36.8 C 36.9 C 37.1 C Pulse Rate 61 81 90 Respiratory Rate 18 16 20 Blood Pressure 146/94 H 159/101 H 149/97 H Pulse Oximetry 95 98 93 Intake/Output Intake/Output: Intake & Output 09/01/20 09/02/20 09/03/20 09/04/20 23:59 23:59 23:59 23:59 Intake Total 1300 4020 1200 Balance 1300 4020 1200 Meds/Results Medications: Active Medications Generic Name Dose Route Start Last Admin Trade Name Freq PRN Reason Stop Dose Admin Acetaminophen 650 mg 09/02/20 19:56 Acetaminophen 325 Mg Tablet PO Q4H PRN Mild Pain (1-3) or Fever Filgrastim 300 mcg 09/05/20 09:00 Filgrastim 300 Mcg/Ml Vial SUB-Q QAM CHALO Guaifenesin/Dextromethorphan 5 ml 09/03/20 04:52 09/04/20 09:15 Guaifenesin/Dextromethorphan 10 Ml Udc PO 5 ml Q4H PRN Administration Cough Hydralazine HCl 10 mg 09/03/20 04:52 Hydralazine Hcl 20 Mg/Ml Vial IV PUSH 09/05/20 07:00 Q8H PRN see comment Lactated Ringer's 1,000 mls @ 50 mls/hr 09/02/20 15:20 09/04/20 06:30 Lr - Lactated Ringers Iv IV CONT 125 mls/hr .Q20H CHALO Administration Promethazine HCl/Codeine 5 ml 09/03/20 19:07 Prome
[2020-09-04 11:27] LABS: Immature Reticulocyte Fraction 12.3 % (3.0-15.9); Reticulocyte Percent 0.36 % (0.7-4.3); Reticulocytes Absolute 0.01 B/L (32.2-175.7)
[2020-09-04] MEDS: FILGRASTIM 300 MCG/ML VIAL SUB-Q (11:30)
[2020-09-04 11:44] LABS: Lactate Dehydrogenase 1139 U/L (313-618)
[2020-09-04 12:00] VITALS: BP 155/90; PULSE 104; RESP 22; TEMP 37.3; O2SAT 96
[2020-09-04 12:00] LABS: Iron 71 ug/dL (49-181)
[2020-09-04 12:09] LABS: Percent Iron Saturation 36 % (20-50)
[2020-09-04 12:54] LABS: Folic Acid 4.7 ng/mL (2.76->20)
[2020-09-04 13:20] LABS: Ferritin > 2000.00 ng/mL (11.1-264)
[2020-09-04 18:09] VITALS: BP 162/97; PULSE 111; RESP 22; TEMP 38.4; O2SAT 90
[2020-09-04] MEDS: ACETAMINOPHEN 325 MG TABLET 650 MG PO (18:19)
[2020-09-04 20:00] VITALS: BP 127/89; PULSE 98; RESP 18; TEMP 36.1; O2SAT 93
[2020-09-05] VITALS (9 sets, daily range): BP systolic 128–158; BP diastolic 59–104; PULSE 100–111; RESP 18–24; TEMP 36.8–38.2; O2SAT 90–95; BMI 29.7
[2020-09-05 06:54] LABS: Hematocrit 26.7 % (42.0-52.0); Hemoglobin 8.7 g/dL (14.0-18.0); Mean Corpuscular HGB Conc 32.6 g/dl (32-36); Mean Corpuscular Hemoglobin 31.6 pg (26-34); Mean Corpuscular Volume 97.1 fl (80-100); Platelet Count Result 27 k/mm3 (150-375); Red Blood Count 2.75 M/mm3 (4.6-6.20); White Blood Count 2.9 K/mm3 (4.5-10.0)
[2020-09-05 07:19] LABS: Anion Gap 2 mmol/L (8-16); Blood Urea Nitrogen 18 mg/dL (9-20); Calcium 8.4 mg/dL (8.4-10.2); Carbon Dioxide 31 mmol/L (22-30); Chloride 103 mmol/L (98-107); Estimated CRCL calculation 59 ml/min; Estimated Glomerular Filt Rate > 60; Glucose 102 mg/dL (75-110); Sodium 136 mmol/L (137-145)
--- NOTE | 2020-09-05 08:02 | PM.IMPN ---
Progress Note: A&P Assessment and Plan (1) Suspected COVID-19 virus infection: Code(s): Z20.828 - Contact with and (suspected) exposure to other viral communicable diseases Status: Acute Assessment and Plan: Patient has been placed in observation status. Continue supportive care. COVID-19 results are pending. The patient is not requiring any supplemental oxygen at this time does not meet criteria for any further dexamethasone treatment. Continue light IV hydration overnight. Antitussive agents as needed. Antipyretics as needed. (2) Pneumonia: Qualifiers: Laterality: unspecified laterality Lung location: unspecified part of lung Pneumonia type: due to unspecified organism Qualified Code(s): J18.9 - Pneumonia, unspecified organism Code(s): J18.9 - Pneumonia, unspecified organism Status: Acute Assessment and Plan: Likely secondary to COVID pneumonia. Will check a sputum culture. Blood cultures. The patient has received 5 doses of azithromycin. He is not requiring any supplemental oxygen at this time. We will check influenza. Also check for pneumococcal Legionella and mycoplasma. (3) Sepsis: Qualifiers: Sepsis acute organ dysfunction status: unspecified Sepsis type: sepsis due to unspecified organism Qualified Code(s): A41.9 - Sepsis, unspecified organism Code(s): A41.9 - Sepsis, unspecified organism Status: Acute Assessment and Plan: Source of sepsis appears to be pulmonary and is likely secondary to COVID pneumonia. Monitor vital signs and urine output. Blood cultures are pending. Check lactic acid. (4) Acute renal failure: Qualifiers: Acute renal failure type: unspecified Qualified Code(s): N17.9 - Acute kidney failure, unspecified Code(s): N17.9 - Acute kidney failure, unspecified Status: Acute Assessment and Plan: Likely secondary to acute dehydration. continue IV fluid challenge overnight. Monitor renal function and urine output. Avoid nephrotoxin agents. Renally dose medications. (5) Pancytopenia: Code(s): D61.818 - Other pancytopenia Status: Acute Assessment and Plan: Likely secondary to chemotherapy. Monitor blood counts. Transfuse p.r.n.. (6) B-cell lymphoma: Qualifiers: B-cell lymphoma type: unspecified B-cell Lymphoma site: unspecified region Qualified Code(s): C85.10 - Unspecified B-cell lymphoma, unspecified site Code(s): C85.10 - Unspecified B-cell lymphoma, unspecified site Status: Chronic Assessment and Plan: Continue oncology recommendations. Additional Plan Will continue current treatment and consult heme onc. No need for Covid treatment as per Pulmonary for now. Monitor oxygen repeat cbc, platelets very low Subjective Date/time seen: 09/05/20 08:02 Interval history: He's feeling better overall. Still no appetite but taking oral liquids OK. Cough is slight better with cough suppressant Mild sob, no chest pain, mood stable. Review of Systems Review of Systems: All systems reviewed & are unremarkable except as noted in HPI and below Exam Const: General: cooperative, no acute distress, alert and awake Nutritional Appearance: well nourished Orientation/consciousness: patient oriented x3 HENMT: Head: normal to inspection General nose exam: Normal external nose present Face and sinus: normal facial exam Mouth: Yes Normal oral and palatal mucosa present and Yes oropharynx normal Eyes: Pupils: Equal, round and reactive pupils present EOM: EOMs intact bilaterally Neck: Neck: supple and no JVD Thyroid: thyroid normal Lymphatic: lymphadenopathy not noted Resp: Effort & Inspection: normal respiratory effort Auscultation: diminished lung sounds Cardio: Rate: tachycardic Rhythm: regular rhythm Heart sounds: no murmurs GI: Inspection: normal to inspection Auscultation: normal bowel sounds Skin: General skin
[2020-09-05] MEDS: FILGRASTIM 300 MCG/ML VIAL SUB-Q (11:13)
[2020-09-05] MEDS: LACTATED RINGERS 1,000 ML 50 ML IV CONT (11:13)
[2020-09-05] MEDS: CENTRAL LINE FLUSH 10 ML IV PUSH (11:28)
--- NOTE | 2020-09-05 17:36 | PDONCCN ---
HPI - Date of Consult Date/Time: 09/05/20 17:36 Requesting Physician: Simon Sanderson MD Primary Care Provider: Sandoval Joseph MD - Consult Narrative Reason for consult: Pancytopenia Narrative: Raul Lopez is a 65 year old male with history of large cell lymphoma received [address] Jerry at [facility] completed in July 14, 2020. He came into the hospital with complaint of generalized tiredness and weakness along with cough with mild shortness of breath without any fevers and chills going on for 3 weeks duration. His cold does came back positive. He was found to be septic with tachycardia and the labs showed WBC count of 1.2 with hemoglobin [place] 10[place] [address]. He denies any bleeding and bruising. He was started on Neupogen and now already feeling better. He denies any other new complaints today. Review of Systems - Review of Systems All systems reviewed & are unremarkable except as noted in HPI and bel - Neurologic Denies abnormal speech, Denies abnormal gait, Denies confusion, Denies headache(s), Denies focal weakness, Denies loss of vision, Denies numbness, Denies other visual disturbances, Denies sensory deficit PMFSH Medical History: Medical History (Last Reviewed 09/04/20 @ 01:03 by Octavio Weber MD) Anxiety Arthritis B-cell lymphoma HTN (hypertension) Hyperlipidemia Surgical History: Surgical History (Last Reviewed 09/04/20 @ 01:03 by Octavio Weber MD) History of hernia surgery right side with mesh 2000 S/P ORIF (open reduction internal fixation) fracture pinning in lt leg 1973 or 1974 Family History: Family History (Last Reviewed 09/04/20 @ 01:03 by Octavio Weber MD) Father Leukemia Mother Lung cancer - Social History Social History: Social History (Last Reviewed 09/04/20 @ 01:03 by Octavio Weber MD) Gender Identity: Gender identity (if verbalized by the patient): Male Alcohol Use: Alcohol intake: former Substance Use: Substance use: never Others: Spiritual care concerns: No Smoking Status: Smoking status: Never smoker Meds Home Medications Medication Instructions Recorded Confirmed Type No Home Medications 09/02/20 09/02/20 History Allergies Allergy/AdvReac Type Severity Reaction Status Date / Time Penicillins Allergy Hives Verified 09/02/20 17:29 Results - Labs CBC & Chem 7: 09/05/20 05:16 09/05/20 05:16 Labs: Short CBC 09/05/20 Range/Units 05:16 WBC 2.9 L (4.5-10.0) K/mm3 Hgb 8.7 L (14.0-18.0) g/dL Hct 26.7 L (42.0-52.0) % Plt Count 27 L (150-375) k/mm3 BMP 09/05/20 05:16 Sodium 136 L Potassium 4.0 Chloride 103 Carbon Dioxide 31 H BUN 18 Creatinine 1.10 Glucose 102 Calcium 8.4 Assessment and Plan - Additional Plan Pancytopenia. Patient is a 65-year-old pleasant male who has history of large B-cell lymphoma status post 6 cycles of chemotherapy completed in June of 2020. He presented with generalized weakness tiredness and fatigue along with shortness of breath and cough without any fevers and chills. His goal with does came back positive. CT chest showed diffuse lung disease likely atypical pneumonia such as COVID-19. Labs showed pancytopenia with WBC count of 0.7. I have ordered other workup that included iron studies and vitamin B12 level. There is no deficiency found except LDH was elevated. Creatinine is normal. Mental status is also preserved. This is unlikely TTP. ITP is also a possibility. I will check platelet antibodies as well as PT PTT. I will also check fibrinogen level. Likely pancytopenia secondary to sepsis and infection. Will continue Neupogen until WBC count improved to 5000. Will continue transfuse him blood for hemoglobin of less than 7. Will continue to follow up along with you. Exam - Vital Signs Vital Signs - 24 hr 09/04/20 18:09
[2020-09-05 19:38] LABS: INR 1.2; Prothrombin Time 16.2 Seconds (11.1-14.7)
[2020-09-05 19:39] LABS: Partial Thromboplastin Time 30.5 SECONDS (22.3-36.8)
[2020-09-05 19:45] LABS: Fibrinogen 554 mg/dl (215-510)
[2020-09-05] MEDS: ACETAMINOPHEN 325 MG TABLET 650 MG PO (22:15)
[2020-09-06] VITALS (9 sets, daily range): BP systolic 126–141; BP diastolic 85–93; PULSE 95–105; RESP 18–24; TEMP 36.9–39.2; O2SAT 90–95
[2020-09-06 05:39] LABS: Hematocrit 26.2 % (42.0-52.0); Hemoglobin 8.4 g/dL (14.0-18.0); Immature Platelet Fraction Pct 10.5 % (0.9-11.2); Mean Corpuscular HGB Conc 32.1 g/dl (32-36); Mean Corpuscular Hemoglobin 31.9 pg (26-34); Mean Corpuscular Volume 99.6 fl (80-100); Red Blood Count 2.63 M/mm3 (4.6-6.20); Red Cell Distribution Width 15.5 % (11.5-14.5); White Blood Count 6.5 K/mm3 (4.5-10.0)
[2020-09-06 05:52] LABS: Platelet Count Result 18 k/mm3 (150-375)
[2020-09-06] MEDS: LACTATED RINGERS 1,000 ML 50 ML IV CONT (09:04)
[2020-09-06] MEDS: CENTRAL LINE FLUSH 10 ML IV PUSH ×2 (13:52→21:27)
[2020-09-06] MEDS: ACETAMINOPHEN 325 MG TABLET 650 MG PO (13:53)
--- NOTE | 2020-09-06 14:05 | PM.PNPUL ---
Progress Note: A&P Assessment and Plan (1) B-cell lymphoma: Qualifiers: B-cell lymphoma type: unspecified B-cell Lymphoma site: unspecified region Qualified Code(s): C85.10 - Unspecified B-cell lymphoma, unspecified site Code(s): C85.10 - Unspecified B-cell lymphoma, unspecified site Status: Chronic (2) Pancytopenia: Code(s): D61.818 - Other pancytopenia Status: Acute Assessment and Plan: WBC has normalized after Neupogen. Platelets still low at 18. Should be monitor as outpatient for recovery and avoid activity that may cause trauma. (3) Pneumonia due to COVID-19 virus: Code(s): U07.1 - COVID-19; J12.89 - Other viral pneumonia Status: Acute Assessment and Plan: Doing well and can be discharged home with close monitoring and instructions to come back if symptoms get worse. Subjective Date/time seen: 09/06/20 14:05 Interval history: Doing well and can be discharge home from my perspective Review of Systems Review of Systems: All systems reviewed & are unremarkable except as noted in HPI and below Exam Const: General: cooperative, no acute distress, alert and awake Nutritional Appearance: well nourished Orientation/consciousness: patient oriented x3 HENMT: Head: normal to inspection General nose exam: Normal external nose present Face and sinus: normal facial exam Mouth: Yes Normal oral and palatal mucosa present and Yes oropharynx normal Eyes: Pupils: Equal, round and reactive pupils present EOM: EOMs intact bilaterally Neck: Neck: supple and no JVD Thyroid: thyroid normal Lymphatic: lymphadenopathy not noted Resp: Effort & Inspection: normal respiratory effort Auscultation: clear to auscultation bilaterally Cardio: Rate: tachycardic Rhythm: regular rhythm Heart sounds: no murmurs GI: Inspection: normal to inspection Auscultation: normal bowel sounds Skin: General skin exam: normal color and no rashes or lesions noted Neuro: General: patient oriented x3 Cranial nerves: Yes CN's II-XII intact bilaterally and Yes Equal, round and reactive pupils present Speech: normal speech Motor exam (neuro): 5/5 motor strength present throughout Sensory Exam: normal sensation Extrem: General: normal to inspection and no edema Psych: Mental Status: mental status grossly normal Affect: normal affect Objective Data Vital Signs Vital Signs: Vital Signs - 24 hr 1207/20 16:00 09/05/20 20:00 09/05/20 22:11 Temperature 36.8 C 38.2 C H Pulse Rate 102 H 100 Respiratory Rate 22 H 18 20 Blood Pressure 155/104 H 129/83 Pulse Oximetry 93 92 92 09/05/20 22:15 09/05/20 23:15 09/06/20 00:12 Temperature 38.2 C H 37.4 C 37.4 C Pulse Rate 95 Respiratory Rate 22 H Blood Pressure 126/86 Pulse Oximetry 90 09/06/20 03:59 09/06/20 08:00 09/06/20 09:14 Temperature 36.9 C 37.6 C Pulse Rate 96 100 Respiratory Rate 20 18 Blood Pressure 137/89 132/92 H Pulse Oximetry 91 92 92 09/06/20 12:00 09/06/20 13:53 Temperature 38.4 C H 39.1 C H Pulse Rate 100 Respiratory Rate 20 Blood Pressure 139/92 H Pulse Oximetry 90 Intake/Output Intake/Output: Intake & Output 09/03/20 09/04/20 09/05/20 09/06/20 23:59 23:59 23:59 23:59 Intake Total 4020 3960 2310 1440 Output Total 600 500 Balance 4020 3360 2310 940 Meds/Results Medications: Active Medications Generic Name Dose Route Start Last Admin Trade Name Freq PRN Reason Stop Dose Admin Acetaminophen 650 mg 09/02/20 19:56 09/06/20 13:53 Acetaminophen 325 Mg Tablet PO 650 mg Q4H PRN Administration Mild Pain (1-3) or Fever Filgrastim 300 mcg 09/05/20 09:00 09/06/20 09:03 Filgrastim 300 Mcg/Ml Vial SUB-Q Not Given QAM [facility] Heparin Sodium (Porcine) 500 units 09/05/20 07:55 Heparin Sod Flush 500 Units/5 Ml Syringe IV PUSH PRN PRN see comments below Lactated Ringer's 1,000 mls @ 50 mls/hr 09/02/20 15:20 09/06/20 09:04 Michael Aguilar
--- NOTE | 2020-09-06 14:22 | PM.IMPN ---
Progress Note: A&P Assessment and Plan (1) Suspected COVID-19 virus infection: Code(s): Z20.828 - Contact with and (suspected) exposure to other viral communicable diseases Status: Acute Assessment and Plan: Patient has been placed in observation status. Continue supportive care. Hopeful Dc 1-2 days time (2) Pneumonia: Qualifiers: Laterality: unspecified laterality Lung location: unspecified part of lung Pneumonia type: due to unspecified organism Qualified Code(s): J18.9 - Pneumonia, unspecified organism Code(s): J18.9 - Pneumonia, unspecified organism Status: Acute Assessment and Plan: Likely secondary to COVID pneumonia. Awaiting sputum culture. Blood cultures. The patient has received 5 doses of azithromycin. Awaiting pneumococcal Legionella and mycoplasma. (3) Sepsis: Qualifiers: Sepsis acute organ dysfunction status: unspecified Sepsis type: sepsis due to unspecified organism Qualified Code(s): A41.9 - Sepsis, unspecified organism Code(s): A41.9 - Sepsis, unspecified organism Status: Acute Assessment and Plan: Source of sepsis appears to be pulmonary and is likely secondary to COVID pneumonia. (4) Acute renal failure: Qualifiers: Acute renal failure type: unspecified Qualified Code(s): N17.9 - Acute kidney failure, unspecified Code(s): N17.9 - Acute kidney failure, unspecified Status: Acute Assessment and Plan: Likely secondary to acute dehydration. Stop iv fluids, creat is NL, CXR ordered for polo AM (5) Pancytopenia: Code(s): D61.818 - Other pancytopenia Status: Acute Assessment and Plan: Likely secondary to chemotherapy. Monitor blood counts. Transfuse p.r.n.. (6) B-cell lymphoma: Qualifiers: B-cell lymphoma type: unspecified B-cell Lymphoma site: unspecified region Qualified Code(s): C85.10 - Unspecified B-cell lymphoma, unspecified site Code(s): C85.10 - Unspecified B-cell lymphoma, unspecified site Status: Chronic Assessment and Plan: Continue oncology recommendations. Subjective Date/time seen: 09/06/20 14:22 Interval history: 65-year-old male with known history of B-cell lymphoma who is followed by Oncology, Dr. Jerry at [facility] and who presented to the hospital with a complaint of generalized weakness, fatigue, intermittent fevers and chills, and poorly productive cough that has been ongoing for the past 3 weeks but seems to have worsened over the last week. Pt has low platelets today. Pt seen by pulmonology and oncology aware of low platelets. cough has gone, pt feels better. Pt has a fever and is needing 7 liters of oxygen. Pt still has fluids, I will stop them. Plts are low no bleeding and bruising though. Pulmonology said ok for discarge but pt desaturated and spiked fever so explained to him he cannot discharge him today. Still spiking feer in the room Review of Systems Review of Systems: All systems reviewed & are unremarkable except as noted in HPI and below Exam Narrative: Exam Narrative: Pt with wet towel on his head, loks unwell Const: General: cooperative, no acute distress, alert and awake Nutritional Appearance: well nourished Orientation/consciousness: patient oriented x3 Resp: Effort & Inspection: normal respiratory effort Cardio: Rate: tachycardic Neuro: General: patient oriented x3 Cranial nerves: Yes CN's II-XII intact bilaterally and Yes Equal, round and reactive pupils present Speech: normal speech Motor exam (neuro): 5/5 motor strength present throughout Sensory Exam: normal sensation Extrem: General: normal to inspection and no edema Psych: Mental Status: mental status grossly normal Affect: normal affect Objective Data Vital Signs Vital Signs: Vital Signs - 24 hr 09/05/20 16:00 09/05/20 20:00 09/05/20 22:11 Temperature 36.8 C 38.2 C H Pulse Rate 102 H 100
--- NOTE | 2020-09-06 16:05 | P.PNONC_ITS ---
Progress Note: A/P - Additional Plan Pancytopenia. Patient is status post chemotherapy for large B-cell lymphoma last cycle was in June 2020. I have reviewed the labs including iron studies and vitamin B12 level. Fibrinogen came back elevated. No evidence of DIC. Platelet antibodies remains pending. I will start him on Solu-Medrol 60 mg q.8 hours for presumed ITP. We can discontinue Neupogen as WBC count has significantly improved. Diffuse large B-cell lymphoma. Status post chemotherapy. Patient will follow- up with the oncologist after the discharge. COVID-19 positive pneumonia. Patient is clinically feeling better. - Time Spent With Patient Total time spent is greater than 50% in coordination of care (as documented) at patient's floor/unit and/or counseling patient: 15 - 25 minutes Subjective Interval history: Pancytopenia Large B-cell lymphoma COVID-19 positive pneumonia Review of Systems - Review of Systems Patient is feeling much better today. He denies any fevers and chills. He denies any cough and shortness of breath. He has been eating well. Denies any bleeding and bruising. No other new complaints today. - Neurologic Denies abnormal speech, Denies abnormal gait, Denies confusion, Denies headache(s), Denies focal weakness, Denies loss of vision, Denies numbness, Denies other visual disturbances, Denies sensory deficit Exam Vital signs: Temp Pulse Resp BP Pulse Ox 39.2 C H 100 20 139/92 H 90 09/06/20 14:53 09/06/20 12:00 09/06/20 12:00 09/06/20 12:00 09/06/20 12:00 Narrative: Lungs are clear to auscultation bilaterally Cardiovascular regular rate rhythm no murmurs Abdomen soft nontender nondistended bowel sounds are positive Extremities no edema PN: Objective Data - Labs CBC & Chem 7: 09/06/20 05:29 09/05/20 05:16 Labs: Laboratory Results - last 24 hr 09/05/20 09/06/20 19:13 05:29 WBC 6.5 RBC 2.63 L Hgb 8.4 L Hct 26.2 L MCV 99.6 MCH 31.9 MCHC 32.1 RDW 15.5 H Plt Count 18 L* MPV TNP % Immature Plt Fraction 10.5 PT 16.2 H INR 1.2 APTT 30.5 Fibrinogen 554 H
[2020-09-06] MEDS: methylPREDNISolone SOD SUCC 125 MG VIAL 60 MG IV PUSH (21:27)
[2020-09-07] VITALS (9 sets, daily range): BP systolic 139–154; BP diastolic 84–95; PULSE 77–94; RESP 18–20; TEMP 36.1–37.3; O2SAT 90–99
[2020-09-07] MEDS: methylPREDNISolone SOD SUCC 125 MG VIAL 60 MG IV PUSH ×3 (05:28→20:37)
[2020-09-07] MEDS: CENTRAL LINE FLUSH 10 ML IV PUSH ×3 (05:29→20:38)
[2020-09-07 06:28] LABS: Alanine Aminotransferase 55 U/L (4-50); Albumin Level 2.9 g/dL (3.5-5.1); Alkaline Phosphatase 71 U/L (38-126); Anion Gap 4 mmol/L (8-16); Aspartate Amino Transferase 45 U/L (17-59); Bilirubin,Total 0.3 mg/dL (0.2-1.3); Blood Urea Nitrogen 18 mg/dL (9-20); Calcium 8.5 mg/dL (8.4-10.2); Carbon Dioxide 32 mmol/L (22-30); Chloride 101 mmol/L (98-107); Estimated CRCL calculation 72 ml/min; Estimated Glomerular Filt Rate > 60; Glucose 159 mg/dL (75-110); Potassium 4.3 mmol/L (3.4-5.0); Sodium 137 mmol/L (137-145)
[2020-09-07 06:29] LABS: Lactic Acid Reflex 1.1 mmol/L (0.7-2.1)
[2020-09-07 09:51] LABS: Hematocrit 28.5 % (42.0-52.0); Hemoglobin 9.1 g/dL (14.0-18.0); Immature Platelet Fraction Pct 9.7 % (0.9-11.2); Mean Corpuscular HGB Conc 31.9 g/dl (32-36); Mean Corpuscular Hemoglobin 31.7 pg (26-34); Mean Corpuscular Volume 99.3 fl (80-100); Red Blood Count 2.87 M/mm3 (4.6-6.20); Red Cell Distribution Width 15.2 % (11.5-14.5); White Blood Count 3.9 K/mm3 (4.5-10.0)
[2020-09-07 09:55] LABS: Platelet Count Result 17 k/mm3 (150-375)
[2020-09-07] MEDS: FILGRASTIM 300 MCG/ML VIAL SUB-Q (10:27)
[2020-09-07 13:42] LABS: Mycoplasma IgM Antibody Titer 4 U/mL (<770)
--- NOTE | 2020-09-07 15:47 | PM.IMPN ---
Progress Note: A&P Assessment and Plan (1) Pneumonia due to COVID-19 virus: Code(s): U07.1 - COVID-19; J12.89 - Other viral pneumonia Status: Acute Assessment and Plan: COVID positive on 09/02/20. Was on room air initially but currently on O2 since 09/05. Ws up to 7L but back down to 3L currently. Solu-Medrol started yesterday. Wean o2 as tolerated. Appreciate Pulm and H/O input. (2) Pneumonia: Qualifiers: Laterality: unspecified laterality Lung location: unspecified part of lung Pneumonia type: due to unspecified organism Qualified Code(s): J18.9 - Pneumonia, unspecified organism Code(s): J18.9 - Pneumonia, unspecified organism Status: Acute Assessment and Plan: Likely secondary to COVID pneumonia. COVID positive 09/02/20. BCx NGTD. He completed a course of azithromycin just prior to admission. Awaiting pneumococcal and Legionella results. Mycoplasma negative. Not on abx at this time. (3) Sepsis: Qualifiers: Sepsis acute organ dysfunction status: unspecified Sepsis type: sepsis due to unspecified organism Qualified Code(s): A41.9 - Sepsis, unspecified organism Code(s): A41.9 - Sepsis, unspecified organism Status: Acute Assessment and Plan: Present on admission with fever, tachycardia and leukopenia. Source of sepsis appears to be pulmonary and is likely secondary to COVID pneumonia. Symptoms are improving. (4) Acute renal failure: Qualifiers: Acute renal failure type: unspecified Qualified Code(s): N17.9 - Acute kidney failure, unspecified Code(s): N17.9 - Acute kidney failure, unspecified Status: Acute Assessment and Plan: Cr 1.6 on admission. Likely secondary to acute dehydration. Treated with IV fluids and Cr normal now. Fluids stopped. Follow (5) Pancytopenia: Code(s): D61.818 - Other pancytopenia Status: Acute Assessment and Plan: Likely secondary to chemotherapy +/- COVID. WBC hit a brianna on 09/03 at 700. Currently WBC better at 3900. Still on Neupogen. Hgb mostly in the 8-9 range but has remained stable. Continue to follow. Plt count continues to drop slowly. no evidence of bleeding. Continue to monitor and transfuse p.r.n.. (6) B-cell lymphoma: Qualifiers: B-cell lymphoma type: unspecified B-cell Lymphoma site: unspecified region Qualified Code(s): C85.10 - Unspecified B-cell lymphoma, unspecified site Code(s): C85.10 - Unspecified B-cell lymphoma, unspecified site Status: Chronic Assessment and Plan: Continue oncology recommendations. Appreciate their input. (7) DVT prophylaxis: Code(s): Z29.9 - Encounter for prophylactic measures, unspecified Status: Acute Assessment and Plan: SCDs in light of the low plt count Subjective Date/time seen: 09/07/20 15:47 Interval history: Date of service 09/07/2020 65yo male with HTN and Bcell Lymphoma here for weakness and fatigue and found to be COVID positive 09/02. Assuming care. Chart reviewed Patient feels better. Eating better. No nausea or vomiting. Up ambulating in the room. Still short of breath. Cough more productive today. No CP. No fevers today. Exam Narrative: Exam Narrative: Tm 102.6 yest. 98.3 154/94 85 18 92% 3L Gen - NARD lying semi-recumbent in bed Chest - distant, clear BS CV - RRR S1/S2 Abd - Soft, NT/ND, Positive BS Ext - No pedal edema Psych - Nml mood and affect Skin - Warm and dry Objective Data Vital Signs Vital Signs: Vital Signs - 24 hr 09/06/20 16:00 09/06/20 20:00 09/07/20 00:00 Temperature 99.7 F H 98.7 F 99.1 F Pulse Rate 105 H 100 94 Respiratory Rate 18 24 H 20 Blood Pressure 128/85 141/93 H 139/95 H Pulse Oximetry 95 92 99 09/07/20 05:00 09/07/20 05:37 09/07/20 08:00 Temperature 97.9 F 97.8 F Pulse Rate 77 85 Respiratory Rate 20 20 Blood Pressure 139/84 154/95 H Pulse Oximetry
[2020-09-08] VITALS (7 sets, daily range): BP systolic 125–138; BP diastolic 77–94; PULSE 81–92; RESP 16–20; TEMP 36.2–36.8; O2SAT 90–95
[2020-09-08] MEDS: methylPREDNISolone SOD SUCC 125 MG VIAL 60 MG IV PUSH ×3 (05:18→21:11)
[2020-09-08] MEDS: CENTRAL LINE FLUSH 10 ML IV PUSH ×3 (05:18→21:11)
[2020-09-08 05:30] LABS: Basophils Percent Auto 0.3 % (0.2-1.2); Hematocrit 27.1 % (42.0-52.0); Hemoglobin 8.8 g/dL (14.0-18.0); Immature Granulocyte Absolute 1.18 K/mm3 (0.00-0.031); Immature Platelet Fraction Pct 12.1 % (0.9-11.2); Lymphocytes Absolute Auto 0.19 K/mm3 (0.9-3.2); Lymphocytes Percent Auto 1.9 % (18.3-44.2); Mean Corpuscular HGB Conc 32.5 g/dl (32-36); Mean Corpuscular Hemoglobin 31.7 pg (26-34); Mean Corpuscular Volume 97.5 fl (80-100); Monocytes Absolute Auto 0.2 K/mm3 (0.1-0.6); Monocytes Percent Auto 2.2 % (2.6-8.5); Neutrophils Absolute Auto 8.3 K/mm3 (1.3-6.7); Neutrophils Percent Auto 83.6 % (45.5-73.1); Red Blood Count 2.78 M/mm3 (4.6-6.20); Red Cell Distribution Width 15.1 % (11.5-14.5); White Blood Count 9.9 K/mm3 (4.5-10.0)
[2020-09-08 05:48] LABS: Alanine Aminotransferase 54 U/L (4-50); Albumin Level 2.8 g/dL (3.5-5.1); Alkaline Phosphatase 72 U/L (38-126); Anion Gap 2 mmol/L (8-16); Aspartate Amino Transferase 49 U/L (17-59); Bilirubin,Total 0.3 mg/dL (0.2-1.3); Blood Urea Nitrogen 24 mg/dL (9-20); Calcium 8.7 mg/dL (8.4-10.2); Carbon Dioxide 33 mmol/L (22-30); Chloride 102 mmol/L (98-107); Estimated CRCL calculation 80 ml/min; Estimated Glomerular Filt Rate > 60; Glucose 163 mg/dL (75-110); Lactate Dehydrogenase 824 U/L (313-618); Magnesium 2.1 mg/dL (1.6-2.3); Phosphorus 4.2 mg/dL (2.5-4.5); Potassium 4.5 mmol/L (3.4-5.0); Sodium 137 mmol/L (137-145)
[2020-09-08 05:57] LABS: CRP 12.6 mg/dL (<1.0)
[2020-09-08 06:22] LABS: Platelet Count Result 16 k/mm3 (150-375)
[2020-09-08 06:24] LABS: Ovalocytes 1+ (NORMAL); Platelet Estimate Decreased (Adequate); Tear Drop Cells 1+ (NORMAL)
[2020-09-08] MEDS: FILGRASTIM 300 MCG/ML VIAL SUB-Q (08:26)
--- NOTE | 2020-09-08 14:23 | PCDIET ---
Nutrition Follow-Up Complete: Inadequate Oral Intake as related to COVID/pneumonia as evidenced by poor po intake reported and weight loss of 9 lbs. Meet estimated nutritional needs Goal: Goal met. Continue goal. Pt current nutrition is Regular diet + Enlive BID Nutrition recommendation: Cancel Enlive BID per pt request Last recorded weight is 91.5 kg (unchanged) Bowel Motility: BM+ 09/07 Labs Reviewed: Hgb 8.8, Hct 27.1, Protein 5.0, Albumin 2.8, C reactive 12.6, Glucose 163 Meds Noted: Solumedrol Additional Notes: Pt appetite better, eating 90-100% of last three meals. We will cancel Enlive per pt request. Pt states he would like to just drink milk. Following every five days to monitor for adequate intake.
--- NOTE | 2020-09-08 14:59 | PM.IMPN ---
Progress Note: A&P Assessment and Plan (1) Pneumonia due to COVID-19 virus: Code(s): U07.1 - COVID-19; J12.89 - Other viral pneumonia Status: Acute Assessment and Plan: COVID positive on 09/02/20 (but symptoms worse over the past week prior to admission). Was on room air initially but currently on O2 since 09/05. Was up to 7L but back down to 3L currently. Solu-Medrol started 09/06. Wean o2 as tolerated. Appreciate Pulm and H/O input. Home O2 evaluation if he remains stable on 3L for the next 24 hours. (2) Pneumonia: Qualifiers: Laterality: unspecified laterality Lung location: unspecified part of lung Pneumonia type: due to unspecified organism Qualified Code(s): J18.9 - Pneumonia, unspecified organism Code(s): J18.9 - Pneumonia, unspecified organism Status: Acute Assessment and Plan: Likely secondary to COVID pneumonia. COVID positive 09/02/20. BCx NGTD. He completed a course of azithromycin just prior to admission. Awaiting pneumococcal and Legionella results. Mycoplasma negative. Not on abx at this time. (3) Sepsis: Qualifiers: Sepsis acute organ dysfunction status: unspecified Sepsis type: sepsis due to unspecified organism Qualified Code(s): A41.9 - Sepsis, unspecified organism Code(s): A41.9 - Sepsis, unspecified organism Status: Acute Assessment and Plan: Present on admission with fever, tachycardia and leukopenia. Source of sepsis appears to be pulmonary and is likely secondary to COVID pneumonia. Symptoms are improving. (4) Acute renal failure: Qualifiers: Acute renal failure type: unspecified Qualified Code(s): N17.9 - Acute kidney failure, unspecified Code(s): N17.9 - Acute kidney failure, unspecified Status: Acute Assessment and Plan: Cr 1.6 on admission. Likely secondary to acute dehydration. Treated with IV fluids and Cr normal now. Fluids stopped. Follow (5) Pancytopenia: Code(s): D61.818 - Other pancytopenia Status: Acute Assessment and Plan: Likely secondary to chemotherapy +/- COVID. WBC hit a brianna on 09/03 at 700. Currently WBC better at 9900. Stop Neupogen. Hgb mostly in the 8-9 range but has remained stable. Continue to follow. Plt count very low and continues to drop very slowly. no evidence of bleeding. 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 Consider also COVID. Continue steroids. Continue to monitor and transfuse p.r.n.. Dr Gill felt patient could be discharged tomorrow if plt count remained stable. (6) B-cell lymphoma: Qualifiers: B-cell lymphoma type: unspecified B-cell Lymphoma site: unspecified region Qualified Code(s): C85.10 - Unspecified B-cell lymphoma, unspecified site Code(s): C85.10 - Unspecified B-cell lymphoma, unspecified site Status: Chronic Assessment and Plan: Continue oncology recommendations. Appreciate their input. (7) DVT prophylaxis: Code(s): Z29.9 - Encounter for prophylactic measures, unspecified Status: Acute Assessment and Plan: SCDs in light of the low plt count Subjective Date/time seen: 09/08/20 14:59 Interval history: Date of service 09/08 65yo male with HTN and Bcell Lymphoma here for weakness and fatigue and found to be COVID positive 09/02. Assuming care. Chart reviewed Feels well. Dysgeusia persistent. Walking in the room. No CP. Cough more productive. SOB about the same. Exam Narrative: Exam Narrative: AF 97.2 126/78 92 16 94% 3L Gen - NARD lying semi-recumbent in bed Chest - CTA bilaterally, nml RR CV - RRR S1/S2 Abd - Soft, NT/ND, Positive BS Ext - No pedal edema Psych - Nml mood and affect Skin - Warm and dry Objective Data Vital Signs Vital Signs: Vital Signs - 24 hr 09/07/20 16:00 09/07/20 20:40 09/07/20 20:59 Temperature 98.2 F 97 F L Pulse Rate 89 83 Respiratory Rate 18 20 Blood
[2020-09-08 18:27] LABS: Legionella pneumophila Ag Ur Not Detected (Not Detected); Pneumococcal Antigen Urine Not Detected (Not Detected)
[2020-09-08] MEDS: MELATONIN 5 MG TABLET PO (23:08)
[2020-09-09] VITALS (14 sets, daily range): BP systolic 115–158; BP diastolic 76–90; PULSE 78–105; RESP 18–22; TEMP 36.2–37.1; O2SAT 84–97
[2020-09-09] MEDS: CENTRAL LINE FLUSH 10 ML IV PUSH ×3 (05:45→21:00)
[2020-09-09] MEDS: methylPREDNISolone SOD SUCC 125 MG VIAL 60 MG IV PUSH ×3 (05:45→20:59)
[2020-09-09 05:58] LABS: Basophils Absolute Auto 0.1 K/mm3 (0.0-0.1); Basophils Percent Auto 0.7 % (0.2-1.2); Hematocrit 27.3 % (42.0-52.0); Hemoglobin 8.6 g/dL (14.0-18.0); Immature Granulocyte Absolute 2.16 K/mm3 (0.00-0.031); Immature Granulocyte Percent A 21.7 % (0-0.5); Immature Platelet Fraction Pct 13.9 % (0.9-11.2); Lymphocytes Absolute Auto 0.15 K/mm3 (0.9-3.2); Lymphocytes Percent Auto 1.5 % (18.3-44.2); Mean Corpuscular HGB Conc 31.5 g/dl (32-36); Mean Corpuscular Hemoglobin 31.5 pg (26-34); Monocytes Absolute Auto 0.2 K/mm3 (0.1-0.6); Monocytes Percent Auto 1.5 % (2.6-8.5); Neutrophils Absolute Auto 7.4 K/mm3 (1.3-6.7); Neutrophils Percent Auto 74.6 % (45.5-73.1); Red Blood Count 2.73 M/mm3 (4.6-6.20); Red Cell Distribution Width 15.4 % (11.5-14.5); White Blood Count 9.9 K/mm3 (4.5-10.0)
[2020-09-09 06:11] LABS: Anion Gap -1 mmol/L (8-16); Blood Urea Nitrogen 27 mg/dL (9-20); Calcium 8.7 mg/dL (8.4-10.2); Carbon Dioxide 34 mmol/L (22-30); Chloride 101 mmol/L (98-107); Estimated CRCL calculation 72 ml/min; Estimated Glomerular Filt Rate > 60; Glucose 144 mg/dL (75-110); Potassium 4.4 mmol/L (3.4-5.0); Sodium 134 mmol/L (137-145)
[2020-09-09 06:43] LABS: Platelet Count Result 20 k/mm3 (150-375)
[2020-09-09 06:47] LABS: Anisocytosis 1+ (NORMAL); Hypochromasia 1+ (NORMAL); Platelet Estimate Adequate (Adequate); Poikilocytosis 1+ (NORMAL)
[2020-09-09] MEDS: guaiFENesin 12 HR 600 MG TABCR PO (09:14)
--- NOTE | 2020-09-09 10:14 | PM.IMPN ---
Progress Note: A&P Assessment and Plan (1) Pneumonia due to COVID-19 virus: Code(s): U07.1 - COVID-19; J12.89 - Other viral pneumonia Status: Acute Assessment and Plan: COVID positive on 09/02/20 (but symptoms worse over the past week prior to admission). Was on room air initially but currently on O2 since 09/05. Was up to 7L but back down to 3L currently and stable past few days. Solu-Medrol started 09/06. Wean O2 as tolerated. Appreciate Pulm and H/O input. Home O2 evaluation today. (2) Pneumonia: Qualifiers: Laterality: unspecified laterality Lung location: unspecified part of lung Pneumonia type: due to unspecified organism Qualified Code(s): J18.9 - Pneumonia, unspecified organism Code(s): J18.9 - Pneumonia, unspecified organism Status: Acute Assessment and Plan: Likely secondary to COVID pneumonia. COVID positive 09/02/20. BCx NGTD. He completed a course of azithromycin just prior to admission. Pneumococcal and Legionella results negative. Mycoplasma negative. Not on abx at this time. (3) Sepsis: Qualifiers: Sepsis acute organ dysfunction status: unspecified Sepsis type: sepsis due to unspecified organism Qualified Code(s): A41.9 - Sepsis, unspecified organism Code(s): A41.9 - Sepsis, unspecified organism Status: Acute Assessment and Plan: Present on admission with fever, tachycardia and leukopenia. Source of sepsis appears to be pulmonary and is likely secondary to COVID pneumonia. Symptoms are improving. (4) Acute renal failure: Qualifiers: Acute renal failure type: unspecified Qualified Code(s): N17.9 - Acute kidney failure, unspecified Code(s): N17.9 - Acute kidney failure, unspecified Status: Acute Assessment and Plan: Cr 1.6 on admission. Likely secondary to acute dehydration. Treated with IV fluids and Cr normal now. Fluids stopped. Follow (5) Pancytopenia: Code(s): D61.818 - Other pancytopenia Status: Acute Assessment and Plan: Likely secondary to chemotherapy +/- COVID. WBC hit a brianna on 09/03 at 700. Currently WBC normal. Hgb mostly in the 8-9 range but has remained stable. Continue to follow. Plt count very low but better today at 20K. No evidence of bleeding. 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 Consider also COVID. Continue steroids. Continue to monitor and transfuse p.r.n.. (6) B-cell lymphoma: Qualifiers: B-cell lymphoma type: unspecified B-cell Lymphoma site: unspecified region Qualified Code(s): C85.10 - Unspecified B-cell lymphoma, unspecified site Code(s): C85.10 - Unspecified B-cell lymphoma, unspecified site Status: Chronic Assessment and Plan: Continue oncology recommendations. Appreciate their input. (7) DVT prophylaxis: Code(s): Z29.9 - Encounter for prophylactic measures, unspecified Status: Acute Assessment and Plan: SCDs in light of the low plt count Subjective Date/time seen: 09/09/20 10:14 Interval history: Date of service 09/09 65yo male with HTN and Bcell Lymphoma here for weakness and fatigue and found to be COVID positive 09/02. Feels not well ('punky'). Cough slightly better but still productive. Eating okay. Walking to the BR Exam Narrative: Exam Narrative: AF 98.8 136/85 105 19 90% 3L Gen - NARD lying semi-recumbent in bed Chest - a few scattered rhonchi o/w clear CV - RRR S1/S2 Abd - Soft, NT/ND, Positive BS Ext - No pedal edema Psych - Nml mood and affect Skin - Warm and dry Objective Data Vital Signs Vital Signs: Vital Signs - 24 hr 09/08/20 12:00 09/08/20 16:00 09/08/20 21:00 Temperature 97.2 F L 98.0 F Pulse Rate 92 87 Respiratory Rate 16 18 Blood Pressure 126/78 138/89 Pulse Oximetry 94 94 95 09/08/20 21:51 09/09/20 01:00 09/09/20 04:20 Temperature 98.1 F 98.1 F 97.9 F Pulse Rate 81 78 80 Respirator
--- NOTE | 2020-09-09 10:45 | HOMEO2EVAL ---
Home Oxygen Evaluation RC: Home Oxygen (O2) Evaluation Start: 09/09/20 07:50 Freq: ONCE Status: Active Protocol: RPE Activity Type Activity Date Activity User E-Sign Co-Sign Detail Recorded Client Recorded Date Recorded By Document 09/09/20 09:40 [email or web address] [email or web address] 09/09/20 10:45 DJO Document 09/09/20 09:45 [email or web address] [email or web address] 09/09/20 10:45 DJO Document 09/09/20 09:50 [email or web address] [email or web address] 09/09/20 10:45 DJO Document 09/09/20 09:55 [email or web address] [email or web address] 09/09/20 10:45 DJO Document 09/09/20 10:00 [email or web address] [email or web address] 09/09/20 10:45 DJO Document 09/09/20 10:05 [email or web address] [email or web address] 09/09/20 10:45 DJO Document 09/09/20 10:10 [email or web address] [email or web address] 09/09/20 10:45 DJO Document 09/09/20 10:20 [email or web address] [email or web address] 09/09/20 10:45 DJO 09/09/20 09/09/20 09/09/20 09:40 09:45 09:50 Home O2 Evaluation Test Phase Resting Resting Resting Oxygen Delivery Room Air Nasal Cannula Nasal Cannula Oxygen Flow Rate (L/min) 1 2 Pulse Oximetry (90-100 %) 84 L 86 L 87 L Pulse Rate (60-100 beats/min) 82 88 Activity Tolerance Treatment Charges O2 Evaluation 09/09/20 09/09/20 09/09/20 09:55 10:00 10:05 Home O2 Evaluation Test Phase Resting Exercise Exercise Oxygen Delivery Nasal Cannula Nasal Cannula Nasal Cannula Oxygen Flow Rate (L/min) 3 3 4 Pulse Oximetry (90-100 %) 90 86 L 88 L Pulse Rate (60-100 beats/min) 84 95 99 Activity Tolerance Treatment Charges 09/09/20 09/09/20 10:10 10:20 Home O2 Evaluation Test Phase Exercise Resting Oxygen Delivery Nasal Cannula Nasal Cannula Oxygen Flow Rate (L/min) 5 3 Pulse Oximetry (90-100 %) 90 90 Pulse Rate (60-100 beats/min) 105 H 84 Activity Tolerance Good Treatment Charges
--- NOTE | 2020-09-09 16:04 | PCRCNOTE ---
HOME O2 SET UP WITH [facility] TO BE DELIVERED TODAY. PHONE NUMBER [phone]
[2020-09-09] MEDS: MELATONIN 5 MG TABLET PO (21:00)
[2020-09-10] VITALS: BP 163/90; PULSE 79; RESP 20; TEMP 36.6; O2SAT 95
[2020-09-10 04:00] VITALS: BP 167/97; PULSE 87; RESP 20; TEMP 36.3; O2SAT 20
[2020-09-10] MEDS: methylPREDNISolone SOD SUCC 125 MG VIAL 60 MG IV PUSH ×2 (06:07→13:16)
[2020-09-10] MEDS: CENTRAL LINE FLUSH 10 ML IV PUSH ×2 (06:07→13:16)
[2020-09-10 06:46] LABS: Basophils Absolute Auto 0.1 K/mm3 (0.0-0.1); Basophils Percent Auto 0.5 % (0.2-1.2); Hematocrit 31.7 % (42.0-52.0); Hemoglobin 9.9 g/dL (14.0-18.0); Immature Granulocyte Absolute 0.07 K/mm3 (0.00-0.031); Immature Granulocyte Percent A 0.7 % (0-0.5); Lymphocytes Absolute Auto 0.25 K/mm3 (0.9-3.2); Lymphocytes Percent Auto 2.4 % (18.3-44.2); Mean Corpuscular HGB Conc 31.2 g/dl (32-36); Mean Corpuscular Hemoglobin 31.7 pg (26-34); Mean Corpuscular Volume 101.6 fl (80-100); Monocytes Absolute Auto 0.1 K/mm3 (0.1-0.6); Monocytes Percent Auto 1.3 % (2.6-8.5); Neutrophils Percent Auto 95.1 % (45.5-73.1); Nucleated Red Blood Cells Perc 0.2 % (0.0-0.2); Red Blood Count 3.12 M/mm3 (4.6-6.20); Red Cell Distribution Width 15.3 % (11.5-14.5); White Blood Count 10.5 K/mm3 (4.5-10.0)
[2020-09-10] MEDS: guaiFENesin 12 HR 600 MG TABCR PO (07:54)
[2020-09-10 08:00] VITALS: BP 143/98; PULSE 77; RESP 18; TEMP 36.5; O2SAT 92
[2020-09-10 08:22] LABS: Platelet Count Result 20 k/mm3 (150-375)
[2020-09-10 12:00] VITALS: BP 122/79; PULSE 93; RESP 20; TEMP 36.6; O2SAT 93
--- NOTE | 2020-09-10 13:21 | PC.NURSE ---
All assessments and administered medications from 0700 09/10/20 through current time were performed by Rena Renae RN.
--- NOTE | 2020-09-10 15:31 | PM.DS ---
DS: Admitting Diagnosis Admitting Diagnosis Admitting Diagnosis: pneumonia,sepsis DS: Discharge Diagnosis Discharge Diagnosis (1) Pneumonia due to COVID-19 virus: Code(s): U07.1 - COVID-19; J12.89 - Other viral pneumonia Status: Acute Assessment and Plan: COVID positive on 09/02/20 (but symptoms worse over the past week prior to admission). Was on room air initially but currently on O2 since 09/05. Was up to 7L but back down to 3L currently and stable past few days. Solu-Medrol started 09/06. Appreciate Pulm and H/O input. Home O2 evaluation showing he needs 3L at rest and 5L with activity (RN states that the patient has been taking his O2 off to walk to the bathroom; he was educated that he will need O2 at home). (2) Pneumonia: Qualifiers: Laterality: unspecified laterality Lung location: unspecified part of lung Pneumonia type: due to unspecified organism Qualified Code(s): J18.9 - Pneumonia, unspecified organism Code(s): J18.9 - Pneumonia, unspecified organism Status: Acute Assessment and Plan: Likely secondary to COVID pneumonia. COVID positive 09/02/20. BCx NGTD. He completed a course of azithromycin just prior to admission. Pneumococcal and Legionella results negative. Mycoplasma negative. Not on abx at this time. (3) Sepsis: Qualifiers: Sepsis acute organ dysfunction status: unspecified Sepsis type: sepsis due to unspecified organism Qualified Code(s): A41.9 - Sepsis, unspecified organism Code(s): A41.9 - Sepsis, unspecified organism Status: Acute Assessment and Plan: Present on admission with fever, tachycardia and leukopenia. Source of sepsis appears to be pulmonary and is likely secondary to COVID pneumonia. Symptoms are improving. (4) Acute renal failure: Qualifiers: Acute renal failure type: unspecified Qualified Code(s): N17.9 - Acute kidney failure, unspecified Code(s): N17.9 - Acute kidney failure, unspecified Status: Acute Assessment and Plan: Cr 1.6 on admission. Likely secondary to acute dehydration. Treated with IV fluids. Cr normal now. Fluids stopped. (5) Pancytopenia: Code(s): D61.818 - Other pancytopenia Status: Acute Assessment and Plan: Likely secondary to chemotherapy +/- COVID. WBC hit a brianna on 09/03 at 700. Currently WBC normal. Hgb mostly in the 8-9 range but has remained stable. Plt count very low but better today at 20K. No evidence of bleeding. 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 Consider also COVID. Continue steroids as Prednisone 60mg BID. (6) B-cell lymphoma: Qualifiers: B-cell lymphoma type: unspecified B-cell Lymphoma site: unspecified region Qualified Code(s): C85.10 - Unspecified B-cell lymphoma, unspecified site Code(s): C85.10 - Unspecified B-cell lymphoma, unspecified site Status: Chronic Assessment and Plan: Oncology followed while he was here. We continued oncology recommendations. Appreciate their input. (7) DVT prophylaxis: Code(s): Z29.9 - Encounter for prophylactic measures, unspecified Status: Acute Assessment and Plan: SCDs in light of the low plt count. It is documented that patient is refusing SCDs. He denies this. Doppler done showing no DVT. DS: Summary Hospital Course Reason for hospitalization: 65yo male with HTN and B-cell Lymphoma here for weakness and fatigue and found to be COVID positive 09/02. Please see H&P for details Hospital Course: Please see above for details of hospital course. Status at Discharge Cognitive/behavioral status at discharge: PATIENT STABLE FOR DISCHARGE Time Spent with Patient Time attestation: Total time spent providing and/or coordinating discharge services: 38 minutes Time spent: Greater than 30 minutes Exam Narrative: Exam Narrative: AF 97.7 143/98 77 18 92% 3L Gen - NARD Chest -clear
[2020-09-10] MEDS: HEPARIN SOD FLUSH 500 UNITS/5 ML SYRINGE IV PUSH (16:09)
== END 2020-09-10 17:00 | disposition home or self-care (01) | DRG 871 ==
LOC: ANHED 15:23 → ANH3MEDSUR 16:49
PROVIDERS: Emergency Medicine; Family Medicine; Internal Medicine; Internal Medicine Hematology & Oncology; Admitting Provider Internal Medicine; Emergency Provider Emergency Medicine; PCP Family Medicine; Visit Provider Internal Medicine
DX: A41.89 Other specified sepsis (principal); U07.1 COVID-19; J12.89 Other viral pneumonia; D61.810 Antineoplastic chemotherapy induced pancytopenia; D69.3 Immune thrombocytopenic purpura; C85.10 Unspecified B-cell lymphoma, unspecified site; N17.9 Acute kidney failure, unspecified; T45.1X5A Adverse effect of antineoplastic and immunosuppressive drugs, initial encounter; E86.0 Dehydration; F41.9 Anxiety disorder, unspecified; M19.90 Unspecified osteoarthritis, unspecified site; E78.5 Hyperlipidemia, unspecified
CPT/HCPCS: 36415; 71045; 71046; 71250; 80048; 80053; 81001; 82607; 82728; 82746; 83540; 83550; 83605; 83615; 83735; 84100; 85025; 85027; 85046; 85055; 85384; 85610; 85730; 86023; 86140; 86738; 87040; 87449; 87635; 87804; 87899; 93005; 93970; 94618; 96361; 96365; 96367; 96375; 99285; A9270; C9803; J0456; J0696; J1100; J1442; J2930; J7030; J7120; U0003